=== PATIENT | male | born 1955 | race Caucasian/White ===

== ENCOUNTER 2017-07-31 23:37 | Emergency (ER) | payer OTHER ==
[2017-08-01 00:51] VITALS: BP 128/99; PULSE 82; TEMP 98.2; BMI 20.7
--- NOTE | 2017-08-01 00:59 | PDOC ---
History of Present Illness <Isaiah Lopes - Last Filed: 08/01/17 01:09> - General History Source: Patient Exam Limitations: No Limitations - History of Present Illness Initial Comments: 08/01/17 02:13 The patient is a 61 year old male with a significant PMH of diabetes who presents to the emergency department with increased glucose level. The patient reports that he was at home earlier today when he did his finger stick and took his insulin. He patient reports that he thinks he too too much of his insulin. The patient was brought into the ED via EMS. The patient denies any fever, chills, nausea, vomit, diarrhea, constipation or urinary symptoms. The patient denies chest pain, shortness of breath, headache and dizziness. The patient denies any other complaints. <Satish Rowe - Last Filed: 08/01/17 02:14> - General Chief Complaint: Blood Sugar Problem Stated Complaint: BLOOD SUGAR PROBLEM Time Seen by Provider: 08/01/17 00:46 Past History - Past Medical History Diabetes: Yes (IDDM) Thyroid Disease: Yes (HYPO) - Immunization History Immunization Up to Date: Yes - Suicide/Smoking/Psychosocial Hx Smoking Status: No Smoking History: Never smoked Have you smoked in the past 12 months: No Number of Cigarettes Smoked Daily: 0 Information on smoking cessation initiated: No Hx Alcohol Use: No Drug/Substance Use Hx: No Substance Use Type: None <MarianneIsaiah - Last Filed: 08/01/17 01:09> <Satish Rowe - Last Filed: 08/01/17 02:14> - Past Medical History Allergies/Adverse Reactions: Allergies Allergy/AdvReac Type Severity Reaction Status Date / Time No Known Allergies Allergy Verified 08/01/17 00:50 Home Medications: Ambulatory Orders Levothyroxine [Synthroid -] 100 mcg PO DAILY #0 tablet 06/04/11 Insulin Glargine,Hum.rec.anlog [Lantus] 35 unit SQ Q12H 12/20/15 Review of Systems - Review of Systems Able to Perform ROS?: Yes Comments:: 08/01/17 02:13 Constitutional:(+)high blood sugar. No recent illness; no fever ENT: No sore throat Cardiovascular: No palpitations; no chest pain Pulmonary: No cough; no trouble breathing Gastrointestinal: No nausea; no vomiting; no diarrhea Genitourinary: No urinary problems; no hematuria Skin: No rash Lymph system: No swollen glands Musculoskeletal: No joint swelling Neurological: No weakness; No numbness; No Headache; no vertigo; no lightheadedness Psychiatric:No anxiety; no depression ROS: A complete review of 10 out of 10 review of systems is taken and is negative apart from what is previously mentioned below and in the HPI. <Satish Rowe - Last Filed: 08/01/17 02:14> *Physical Exam - Vital Signs Last Vital Signs Temp Pulse Resp BP Pulse Ox 98.2 F 82 19 128/99 97 08/01/17 00:34 08/01/17 00:34 08/01/17 00:34 08/01/17 00:34 08/01/17 00:34 <Isaiah Lopes - Last Filed: 08/01/17 01:09> - Vital Signs Last Vital Signs Temp Pulse Resp BP Pulse Ox 98.2 F 82 19 128/99 97 08/01/17 00:34 08/01/17 00:34 08/01/17 00:34 08/01/17 00:34 08/01/17 00:34 - Physical Exam Comments: 08/01/17 02:13 Vitals: Triage vital signs reviewed General Appearance: No acute distress, well nourished, well developed Head: Atraumatic Chest Wall: Nontender Cardiac: Regular rate and rhythm, no murmurs, no rubs, no gallops Lungs: Clear to auscultation bilateral, good air movement bilaterally Abdomen: Soft, nondistended, normal bowel sounds, nontender to palpation Rectal: Exam deferred Extremities: Full range of motion to all extremities, no cyanosis, clubbing, or edema Skin: Warm and dry, no rashes or lesions, no rash, no petechiae Neuro: AOX3; Cranial Nerves 2-12 grossly intact, Strength intact to all extremities, Sensation intact to all extremities, gait normal Psych: Normal mood, normal affect <Satish Rowe - Last Filed: 08/01/17 02:14> ED Treatment Course - ADDITIONAL ORDERS Additional order review: Laboratory Results 08/01/17 00:34 POC Glucometer 89.05768 08/01/17 00:34 POC Glucometer 89.46340 <Isaiah Lopes - Last Filed: 08/01/17 01:09> - ADDITIONAL ORDERS Additional order review: Laboratory Results 08/01/17 00:34 POC Glucometer 89.87962 08/01/17 00:34 POC Glucometer 89.23936 <Satish Rowe - Last Filed: 08/01/17 02:14> Medical Decision Making - Medical Decision Making 08/01/17 00:59 Patient with frequent visits for hypoglycemia. States he had a high fingerstick at home supped too much of his insulin EMS found patient with a fingerstick of 24 was given 500 mL of D10 in the field Currently is fingerstick is 89. Patient provided with sandwich. Review of systems negative. His examination is within normal limits. Patient does not want blood work drawn. If repeat fingerstick within normal limits patient can return home patient advised to take his insulin only as prescribed and is advised follow-up with his primary care provider tomorrow <Isaiah Lopes - Last Filed: 08/01/17 01:09> - Medical Decision Making 08/01/17 02:13 The patient is a 61 year old male with a significant PMH of diabetes who presents to the emergency department with increased glucose level. The patient reports that he was at home earlier today when he did his finger stick and took his insulin. He patient reports that he thinks he too too much of his insulin. The patient was brought into the ED via EMS. The patient denies any fever, chills, nausea, vomit, diarrhea, constipation or urinary symptoms. The patient denies chest pain, shortness of breath, headache and dizziness. The patient denies any other complaints. <Satish Rowe - Last Filed: 08/01/17 02:14> *DC/Admit/Observation/Transfer - Discharge Dispostion Decision to Admit order: No <Isaiah Lopes - Last Filed: 08/01/17 01:09> - Attestations Scribe Attestion: 08/01/17 02:14 Documentation prepared by Satish Rowe, acting as medical claims representative for Isaiah Lopes MD. <Satish Rowe - Last Filed: 08/01/17 02:14> Diagnosis at time of Disposition: Low blood glucose measurement - Discharge Dispostion Disposition: HOME Condition at time of disposition: Fair - Referrals Referrals: Shivam Dasilva MD [Primary Care Provider] - - Patient Instructions Printed Discharge Instructions: Hypoglycemia Additional Instructions: Do not take any extra insulin tonight. Tomorrow morning call your primary care provider to discuss her current insulin regimen. Only take her insulin exactly as prescribed do not skip any meals. Return to emergency Department for severe worsening symptoms or for any concerns. - Post Discharge Activity
== END 2017-08-01 01:56 | disposition home or self-care (01) ==
LOC: JER 23:37
DX: E11.649 Type 2 diabetes mellitus with hypoglycemia without coma (principal); Z79.4 Long term (current) use of insulin; E03.9 Hypothyroidism, unspecified
CPT/HCPCS: 82962; 99281-25

== ENCOUNTER 2018-07-26 04:07 | Emergency (ER) | payer SELFPAY ==
[2018-07-26 04:46] VITALS: TEMP 98.1; BMI 21.9
--- NOTE | 2018-07-26 04:47 | PDOC ---
History of Present Illness - General Chief Complaint: Blood Sugar Problem Stated Complaint: Low blood sugar Time Seen by Provider: 07/26/18 04:46 History Source: Patient, Sibling Exam Limitations: No Limitations - History of Present Illness Initial Comments: 07/26/18 05:14 Patient is a 62 year old male with history of insulin dependent diabetes mellitus, hypothyroidism, presents with hypoglycemia. Per patient's brother (Angelo Duke [phone]) patient was found in bed, groaning approx 11PM. His fingerstick blood glucose was in the 20s, and remained at that level despite drinking juice which prompted him calling 911. Denies any fall, loss of consciousness, trauma to head or any other part of the body, seizure-like activity. Patient admits taking his usual dose Insulin 35 units this morning (approx 11AM). Patient denies taking any oral hypoglycemic medications. Patient admits that this morning, he ate toast with coffee, had [employer] (fillet of fish) for lunch, and had chicken for dinner, however admits that he was not hungry during the day and did not eat as much as he usually would. Patient denies subjective fevers, chills, shortness of breath, chest pain, palpitations, abdominal pain, nausea, vomiting. Of note, patient has been evaluated at [facility] ED for hypoglycemia numerous visits in the past. Past History - Past Medical History Allergies/Adverse Reactions: Allergies Allergy/AdvReac Type Severity Reaction Status Date / Time No Known Allergies Allergy Verified 07/26/18 04:37 Home Medications: Ambulatory Orders Levothyroxine [Synthroid -] 100 mcg PO DAILY #0 tablet 06/04/11 Insulin Glargine,Hum.rec.anlog [Lantus] 35 unit SQ Q12H 12/20/15 Diabetes: Yes (IDDM) Thyroid Disease: Yes (HYPO) - Immunization History Immunization Up to Date: Yes - Suicide/Smoking/Psychosocial Hx Smoking Status: No Smoking History: Never smoked Have you smoked in the past 12 months: No Number of Cigarettes Smoked Daily: 0 Information on smoking cessation initiated: No Hx Alcohol Use: Yes (social) Drug/Substance Use Hx: No Substance Use Type: None Review of Systems - Review of Systems Able to Perform ROS?: Yes (As per HPI) *Physical Exam - Vital Signs Last Vital Signs Temp Pulse Resp BP Pulse Ox 98.1 F 82 18 141/94 100 07/26/18 04:07 07/26/18 04:07 07/26/18 04:07 07/26/18 04:07 07/26/18 04:07 - Physical Exam General Appearance: Yes: Nourished. No: Apparent Distress HEENT: positive: EOMI, HITESH. negative: Scleral Icterus (R), Scleral Icterus (L) , Pharyngeal Erythema, Nasal Congestion Neck: positive: Trachea midline, Supple. negative: Lymphadenopathy (R), Lymphadenopathy (L) Respiratory/Chest: positive: Lungs Clear, Normal Breath Sounds. negative: Respiratory Distress, Accessory Muscle Use, Crackles, Rales, Rhonchi, Stridor, Wheezing, Hyperresonant Cardiovascular: positive: Regular Rhythm, Regular Rate, S1, S2. negative: Murmur Gastrointestinal/Abdominal: positive: Normal Bowel Sounds, Flat, Soft. negative : Tender Extremity: positive: Normal Capillary Refill, Normal Range of Motion Integumentary: positive: Dry, Warm Neurologic: positive: bias cutter helper II-XII NML intact, Fully Oriented, Alert, Normal Mood/ Affect, Motor Strength 07/01 ED Treatment Course - LABORATORY CBC & Chemistry Diagram: 07/26/18 05:20 07/26/18 05:20 Medical Decision Making - Medical Decision Making 07/26/18 05:21 Patient is a 62 year old male with history of insulin dependent diabetes mellitus, hypothyroidism, presents with hypoglycemia. BGM in the field was reportedly in the 20s. Currently in ED BGN is 251 mg/ dL after eating cookies, and juice. Will order CBC, BMP. 07/26/18 06:07 CBC unremarkable. HB, HCT stable. BMP reveals blood glucose of 253 Patient resting comfortably in exam bed, denies acute complaints. Will discharge patient home. Counselled patient to discuss his insulin doseage with primary care physician. Referral provided for bilingual interpreter. Counseled patient to eat frequent meals, and to not skip any meals. Counselled to continue checking fingerstick blood glucose and to drink water and return to ED if BGM below 60. Patient in agreement with plan. All concerns, questions addressed and answered. Family picked up patient to take him home. 07/26/18 06:44 *DC/Admit/Observation/Transfer Diagnosis at time of Disposition: Hypoglycemia - Discharge Dispostion Disposition: HOME Condition at time of disposition: Stable Decision to Admit order: No - Referrals Referrals: Liss Pandey MD [Staff Physician] - - Patient Instructions Printed Discharge Instructions: DI for Hypoglycemia Additional Instructions: You were seen in the Emergency Department for low blood sugar. Your blood sugar increased with food, and juice and has remained stable. You are being discharged home. Continue taking your home medications as directed. Discuss your insulin dose with your primary care physician. Follow your primary care physician's recommendations closely Further, ensure to eat 5 meals throughout the day with a diet rich in whole grains, protein, and vegetables. DO NOT skip any meals. Continue checking your blood sugars. If your blood sugar is below 60mg/dL immediately drink some juice and return to the nearest Emergency Department. Follow up with your primary care physician TODAY, regarding your insulin dose. It is important that you follow up with an bilingual interpreter. A referral to Dr. Pandey has been provided. Return to the nearest Emergency Department if you experience worsening symptoms , subjective fevers, chills, shortness of breath, chest pain, palpitations, abdominal pain, nausea, vomiting, falls, loss of consciousness, any trauma. - Post Discharge Activity
[2018-07-26 05:45] LABS: HEMOGLOBIN 14.9 GM/dL (11.7-16.9); MCH 33.6 pg (25.7-33.7); MCHC 34.7 g/dl (32.0-35.9); MEAN CELL VOLUME 96.9 fl (80-96); MEAN PLT VOLUME 8.1 fl (7.5-11.1); PLATELET COUNT 261 K/MM3 (134-434); RBC 4.44 M/mm3 (4.00-5.60); RDW 12.6 % (11.9-15.9); WHITE BLOOD COUNT 9.1 K/mm3 (4.0-10.0)
[2018-07-26 05:54] LABS: CALCIUM 8.9 mg/dL (8.5-10.1); CREATININE 0.8 mg/dL (0.55-1.3); POTASSIUM 4.5 mmol/L (3.5-5.1)
--- NOTE | 2018-07-26 06:21 | PDOC ---
Attending Attestation - Resident Resident Name: Eduar Javier - ED Attending Attestation I have performed the following: I have examined & evaluated the patient, The case was reviewed & discussed with the resident, I agree w/resident's findings & plan - HPI HPI: 07/26/18 06:17 62-year-old male found to be breathing heavy by family with blood sugars in the 20s according to EMS. Patient given D10 prior to arrival. - Physicial Exam PE: 07/26/18 06:19 agree with residents exam - Medical Decision Making 07/26/18 06:19 62-year-old male with hypoglycemia currently on insulin only for diabetes Patient's blood sugar now 253 after eating in the emergency department He is awake alert and asking to be discharged home on reevaluation at 6:15 Patient advised to follow him health record technician as he has had hypoglycemia in the past and states he only takes his insulin once a day
[2018-07-26 07:42] VITALS: BP 135/90; PULSE 80
--- NOTE | 2018-07-30 11:30 | EKG ---
Test Reason : Blood Pressure : / mmHG Vent. Rate : 086 BPM Atrial Rate : 086 BPM P-R Int : 128 ms QRS Dur : 082 ms QT Int : 364 ms P-R-T Axes : 085 026 055 degrees QTc Int : 435 ms NORMAL SINUS RHYTHM NORMAL ECG WHEN COMPARED WITH ECG OF 20-DEC-2015 20:28, NO SIGNIFICANT CHANGE WAS FOUND Confirmed by ENOC MENESES MD ([id number]) on 07/30/2018 11:29:53 AM Referred By: Confirmed By:ENOC MENESES MD
== END 2018-07-26 06:47 | disposition home or self-care (01) ==
LOC: JER 04:07
DX: E11.649 Type 2 diabetes mellitus with hypoglycemia without coma (principal); Z79.4 Long term (current) use of insulin; E03.9 Hypothyroidism, unspecified
CPT/HCPCS: 36415; 80048; 82962; 85027; 93005; 93010; 99282-25

== ENCOUNTER 2018-08-22 02:00 | Emergency (ER) | payer OTHER | END 2018-08-22 04:33 | disposition home or self-care (01) | LOC: JER 02:00 ==

== ENCOUNTER 2018-12-07 03:20 | Emergency (ER) | payer OTHER ==
[2018-12-07 03:44] VITALS: BP 144/96; PULSE 76; TEMP 97.8; BMI 23.5
--- NOTE | 2018-12-07 04:09 | PDOC ---
History of Present Illness - General Chief Complaint: Blood Sugar Problem Stated Complaint: BLOOD SUGAR PROBLEM Time Seen by Provider: 12/07/18 04:08 History Source: Patient Exam Limitations: No Limitations - History of Present Illness Initial Comments: 12/07/18 04:17 Todd Duke is a 63yM w PMHX IDDM, hypothyroidism presenting with hypoglycemia. This morning, pt was sleeping when sister measured BG 26. Denies any change in sensation. Started D10 by EMS on the way to [facility]. Takes 30u Lantus once every morning. Denies change in activity/eating. Denies fever, cough , headache, SOB, chest/AB pain, urinary/bowel movement changes. Past History - Past Medical History Allergies/Adverse Reactions: Allergies Allergy/AdvReac Type Severity Reaction Status Date / Time No Known Allergies Allergy Verified 12/07/18 03:42 Home Medications: Ambulatory Orders Levothyroxine [Synthroid -] 100 mcg PO DAILY #0 tablet 06/04/11 Insulin Glargine,Hum.rec.anlog [Lantus] 30 unit SQ HS 12/20/15 COPD: No Diabetes: Yes (IDDM) Thyroid Disease: Yes (HYPO) - Immunization History Immunization Up to Date: Yes - Psycho Social/Smoking Cessation Hx Smoking Status: No Smoking History: Unknown if ever smoked Have you smoked in the past 12 months: No Number of Cigarettes Smoked Daily: 0 Information on smoking cessation initiated: No Hx Alcohol Use: No Drug/Substance Use Hx: No Substance Use Type: None Review of Systems - Review of Systems Constitutional: No: Chills HEENTM: No: Eye Pain, Nose Pain, Throat Pain, Mouth Pain Respiratory: No: Cough, Shortness of Breath Cardiac (ROS): No: Chest Pain, Palpitations, Syncope ABD/GI: No: Abdominal Distended, Constipated, Diarrhea, Nausea, Vomiting : No: Burning, Dysuria, Discharge, Flank Pain, Hematuria Musculoskeletal: No: Back Pain, Joint Pain, Muscle Pain, Muscle Weakness Integumentary: No: Bruising, Flushing, Lesions Neurological: No: Headache, Seizure, Tingling, Tremors Psychiatric: No: Anxiety, Depression, Stressors Endocrine: No: Excessive Sweating, Flushing, Intolerance to Cold, Intolerance to Heat Hematologic/Lymphatic: No: Anemia, Blood Clots *Physical Exam - Vital Signs Last Vital Signs Temp Pulse Resp BP Pulse Ox 97.8 F 76 20 144/96 98 12/07/18 03:42 12/07/18 03:42 12/07/18 03:42 12/07/18 03:42 12/07/18 03:42 - Physical Exam General Appearance: Yes: Nourished, Appropriately Dressed. No: Apparent Distress HEENT: positive: EOMI, HITESH, Normal Voice, Hearing Grossly Normal. negative: Scleral Icterus (R), Scleral Icterus (L), Nasal Congestion, Rhinorrhea Respiratory/Chest: positive: Lungs Clear, Normal Breath Sounds. negative: Chest Tender, Respiratory Distress, Crackles, Rhonchi, Stridor, Wheezing Cardiovascular: positive: Regular Rhythm, Regular Rate, S1, S2. negative: Edema , Murmur Gastrointestinal/Abdominal: positive: Normal Bowel Sounds, Flat, Soft. negative : Tender, Organomegaly Musculoskeletal: negative: CVA Tenderness (R), CVA Tenderness (L) Extremity: positive: Normal Capillary Refill Integumentary: positive: Normal Color Neurologic: positive: Fully Oriented, Alert, Normal Response, Responsive. negative: Sensory Deficit, Confused, Disoriented ED Treatment Course - ADDITIONAL ORDERS Additional order review: Laboratory Results 12/07/18 03:38 POC Glucometer 71 12/07/18 03:38 POC Glucometer 71 Medical Decision Making - Medical Decision Making 12/07/18 04:25 Todd Duke is a 63yM w PMHX IDDM, hypothyroidism presenting with hypoglycemia BG 26 likely d/t inadequate food intake. Repeat BG 71 after D10 given. Pt neuro intact, back to baseline, asymptomatic. Pending UA. D/c home w PCP f/u, call back if UA abnormal Discharge - Discharge Information Problems reviewed: Yes Clinical Impression/Diagnosis: Hypoglycemia Condition: Improved Disposition: HOME - Follow up/Referral Referrals: Ирина Escalera MD [Primary Care Provider] - CallBack Reminder: call back if UA abnormal - Patient Discharge Instructions Patient Printed Discharge Instructions: DI for Hypoglycemia Additional Instructions: You were seen for low glucose levels. You were given glucose. We'll call you back if the urine sample is abnormal Please follow up with your primary care doctor to control your glucose Come back to the ED if your glucose is low, pass out, or vomit - Post Discharge Activity
--- NOTE | 2018-12-07 05:40 | PDOC ---
Attending Attestation - Resident Resident Name: AntonioAddy - ED Attending Attestation I have performed the following: I have examined & evaluated the patient, The case was reviewed & discussed with the resident, I agree w/resident's findings & plan, Exceptions are as noted - HPI HPI: 12/07/18 05:33 Mr. Duke is a 63 yo M h/o IDDM, hypothyroidism presenting with hypoglycemia. Pt bloog glucose was measured by a family member, noted to be 26 EMS called, started on D10 Pt took 30 units of Lantus daily Did not eat much today Denies fever, cough, headache, SOB, chest/AB pain, urinary/bowel movement changes. - Physicial Exam PE: 12/07/18 05:35 GENERAL: The patient is in no acute distress, he is pacing in the ER. ENT:Moist mucous membranes. NECK: Normal range of motion, supple, no nuchal rigidity LUNGS: Breath sounds equal, clear to auscultation bilaterally. No wheezes, and no crackles. HEART:Regular rate and rhythm, normal S1 and S2 without murmur, rub or gallop. ABDOMEN: Soft, nontender, normoactive bowel sounds. EXTREMITIES: Normal range of motion, no edema. NEUROLOGICAL: Cranial nerves II through XII grossly intact. Normal speech. No focal neurological deficits. SKIN: Warm, Dry, normal turgor, no rashes or lesions noted. - Medical Decision Making 12/07/18 05:36 Laboratory Tests 12/07/18 03:38 POC Glucometer 71 Pt is fidgiting, pacing in the ER Requesting to leave the ER now No other complaints We have had a discussion about close monitoring of his blood glucose And that he should eat or drink if his blood glucose gets low Clinical impression: Hypoglycemia
== END 2018-12-07 05:34 | disposition home or self-care (01) ==
LOC: JER 03:20
DX: E11.649 Type 2 diabetes mellitus with hypoglycemia without coma (principal); Z79.4 Long term (current) use of insulin; E03.9 Hypothyroidism, unspecified
CPT/HCPCS: 82962; 99282-25

== ENCOUNTER 2018-12-16 07:18 | Emergency (ER) | payer OTHER ==
--- NOTE | 2018-12-16 07:21 | PDOC ---
History of Present Illness - General Stated Complaint: HYPOGLACEMIA - History of Present Illness Initial Comments: The pt is a 63M w/ a history of IDDM and hypothyroidism who presents for evaluation of an episode of hypoglycemia. The pt lives with his family who noted he was altered this morning and called EMS. Upon arrival, per EMS, the pt' s BG was 25. He got 250cc of D10 in the field w/ a repeat BG of 120s. The pt reports he last took NPH 40u at 1000 yesterday (21 hours ago) and denies any regular insulin use in the last 3 days or any insulin use at all after 1000 yesterday. He endorses taking his Synthroid this AM. He denies fevers, MULLER, chest pain, cough, trouble breathing, N/V/C/D, dysuria, or rash Meds: NPH 40u Qam, Regular insulin ISS, Synthroid 12/16/18 07:32 Past History - Past Medical History Allergies/Adverse Reactions: Allergies Allergy/AdvReac Type Severity Reaction Status Date / Time No Known Allergies Allergy Verified 12/16/18 07:22 Home Medications: Ambulatory Orders Levothyroxine [Synthroid -] 100 mcg PO DAILY #0 tablet 06/04/11 Insulin Glargine,Hum.rec.anlog [Lantus] 30 unit SQ HS 12/20/15 COPD: No Diabetes: Yes (IDDM) Thyroid Disease: Yes (HYPO) - Immunization History Immunization Up to Date: Yes - Psycho Social/Smoking Cessation Hx Smoking Status: No Smoking History: Unknown if ever smoked Have you smoked in the past 12 months: No Number of Cigarettes Smoked Daily: 0 Hx Alcohol Use: No Drug/Substance Use Hx: No Substance Use Type: None Review of Systems - Review of Systems Able to Perform ROS?: Yes Comments:: GENERAL/CONSTITUTIONAL: No fever or chills. No weakness HEAD, EYES, EARS, NOSE AND THROAT: No change in vision. No change in hearing. No sore throat CARDIOVASCULAR: No chest pain or shortness of breath RESPIRATORY: Denies cough, hemoptysis GASTROINTESTINAL: No nausea, vomiting, diarrhea or constipation GENITOURINARY: No dysuria, frequency, or change in urination MUSCULOSKELETAL: No joint or muscle swelling or pain. No neck or back pain SKIN: No rash NEUROLOGIC: No headache, vertigo, loss of consciousness, or change in strength/ sensation ENDOCRINE: No increased thirst. No abnormal weight change ALLERGIC/IMMUNOLOGIC: No hives or skin allergy 12/16/18 07:20 Is the patient limited Spanish proficient: No *Physical Exam - Vital Signs Vital Signs Period Temp Pulse Resp BP Sys/Lackey Pulse Ox Last 24 Hr 98.8 F 70 16 145/77 100 12/16/18 07:37 - Physical Exam Comments: GENERAL: Awake, alert, and oriented to person/place/time, in no acute distress HEAD: No signs of trauma, normocephalic, atraumatic EYES: PERRLA, EOMI, sclera anicteric, conjunctiva clear ENT: Hearing grossly normal, nares patent, oropharynx clear without exudates. Moist mucosa LUNGS: No distress, speaks in full sentences, clear to auscultation bilaterally HEART: Regular rate and rhythm, normal S1 and S2, no murmurs appreciated, peripheral pulses normal and equal bilaterally ABDOMEN: Soft, nontender, normoactive bowel sounds. No guarding, no rebound EXTREMITIES: Normal inspection, Normal range of motion, no edema. No clubbing or cyanosis NEUROLOGICAL: Cranial nerves II through XII grossly intact. Normal speech, normal gait, no focal sensorimotor deficits SKIN: Warm, Dry 12/16/18 07:20 Medical Decision Making - Medical Decision Making The pt is a 63M w/ a history of IDDM and hypothyroidism who presents for evaluation of an episode of hypoglycemia. ED Course BGM 193 Pt A&Ox3 at this time and eating Will recheck BG and monitor 12/16/18 07:41 Repeat BGM 228 12/16/18 08:17 Pt need follow up with Dr. Dasilva this week to discuss insulin regimen discussed with him. Plan for D/C Discharge instructions and return precautions given Patient in agreement and verbalized understanding Dispo: Home Discharge - Discharge Information Problems reviewed: Yes Clinical Impression/Diagnosis: Hypoglycemia Condition: Stable Disposition: HOME - Admission No - Follow up/Referral Referrals: Shivam Dasilva MD [Primary Care Provider] - - Patient Discharge Instructions Patient Printed Discharge Instructions: DI for Hypoglycemia Additional Instructions: You were seen in the Emergency Department for evaluation of low blood sugar. Repeat checks in the Emergency Department were improved. Call Dr. Dasilva's office tomorrow to schedule and appointment to discuss your insulin regimen. It may need to be adjusted if you are having episodes of low blood sugar. Review the handout provided at discharge. Return to the Emergency Department if you develop confusion, dizziness, chest pain, trouble breathing, nausea/vomiting, abdominal pain, worsening symptoms, or any new/concerning symptoms. - Post Discharge Activity
--- NOTE | 2018-12-16 07:25 | PDOC ---
Attending Attestation - Resident Resident Name: Deshawn Acosta - HPI HPI: 12/16/18 08:19 Pt presents to the ED after found hypoglycemic at home. Last insulin was novalog at 11 am yesterday, as per patient. Patient is unable to state why his blood sugar keeps dropping. States that he ate his normal diet yesterday. Now denies complaints. - Physicial Exam PE: 12/16/18 08:21 Agree with resident exam. Patient is alert and oriented x 3. CN grossly intact. Moving all extremities. - Medical Decision Making 12/16/18 08:21 Pt presents to the ED complaining of hypoglycemia. Resolved after d10 by EMS. Has eaten in the ED, FS 220 after 1 hour. Will discharge home with instructions to call Dr. Gant for follow up tomorrrow AM.
[2018-12-16 07:41] VITALS: BP 145/77; BMI 21.9
[2018-12-16 08:26] VITALS: PULSE 82; TEMP 98.2
== END 2018-12-16 08:25 | disposition home or self-care (01) ==
LOC: JER 07:18
DX: E11.649 Type 2 diabetes mellitus with hypoglycemia without coma (principal); Z79.4 Long term (current) use of insulin; E03.9 Hypothyroidism, unspecified
CPT/HCPCS: 82962; 99282-25

== ENCOUNTER 2019-02-06 04:15 | Emergency (ER) | payer OTHER ==
[2019-02-06] MEDS ORDERED: GlUCAGON HUMAN RECOMBINANT 1 MG/VIAL ONE (04:18)
[2019-02-06 04:29] VITALS: TEMP 98.3; BMI 21.9
--- NOTE | 2019-02-06 05:03 | PDOC ---
Attending Attestation - Resident Resident Name: Juan Carlos Chakraborty - ED Attending Attestation I have performed the following: I have examined & evaluated the patient, The case was reviewed & discussed with the resident, I agree w/resident's findings & plan - HPI HPI: 02/06/19 05:58 SEE RESIDENT HPI - Physicial Exam PE: 02/06/19 05:59 agree with resident exam - Medical Decision Making 02/06/19 05:59 63-year-old male found unresponsive with a blood sugar of 25 Likely insulin reaction, patient is not on oral sulfonylureas Labs were unremarkable for significant acute abnormalities Patient received D10 and glucagon prior to arrival Patient fed in the emergency department He has ambulated to the bathroom on his own and is alert and oriented at baseline Will DC home with instructions for insulin reaction and PCP follow-up
[2019-02-06 05:12] LABS: BASO % 0.1 % (0-2.0); HEMOGLOBIN 15.1 GM/dL (11.7-16.9); LYMPH % 5.6 % (8-40); MCH 34.9 pg (25.7-33.7); MCHC 35.2 g/dl (32.0-35.9); MEAN CELL VOLUME 99.1 fl (80-96); MEAN PLT VOLUME 8.1 fl (7.5-11.1); MONO % 5.9 % (3.8-10.2); NEUT % 88.4 % (42.8-82.8); PLATELET COUNT 284 K/MM3 (134-434); RBC 4.33 M/mm3 (4.00-5.60); RDW 12.8 % (11.9-15.9); WHITE BLOOD COUNT 14.7 K/mm3 (4.0-10.0)
[2019-02-06 05:34] LABS: ALBUMIN 3.9 g/dl (3.4-5.0); BILIRUBIN,TOTAL 0.4 mg/dL (0.2-1); BLOOD UREA NITROGEN 9.7 mg/dL (7-18); CALCIUM 9.1 mg/dL (8.5-10.1); CREATININE 0.9 mg/dL (0.55-1.3); POTASSIUM 3.8 mmol/L (3.5-5.1); TOT PROT 6.9 g/dl (6.4-8.2)
--- NOTE | 2019-02-06 06:06 | PDOC ---
History of Present Illness - General Chief Complaint: Blood Sugar Problem Stated Complaint: HYPOGLYCEMIA Time Seen by Provider: 02/06/19 05:02 Past History - Past Medical History Allergies/Adverse Reactions: Allergies Allergy/AdvReac Type Severity Reaction Status Date / Time No Known Allergies Allergy Verified 02/06/19 04:19 Home Medications: Ambulatory Orders Levothyroxine [Synthroid -] 100 mcg PO DAILY #0 tablet 06/04/11 Insulin Glargine,Hum.rec.anlog [Lantus] 30 unit SQ HS 12/20/15 COPD: No Diabetes: Yes (IDDM) Thyroid Disease: Yes (HYPO) - Immunization History Immunization Up to Date: Yes - Psycho Social/Smoking Cessation Hx Smoking Status: No Smoking History: Unknown if ever smoked Have you smoked in the past 12 months: No Number of Cigarettes Smoked Daily: 0 Hx Alcohol Use: No Drug/Substance Use Hx: No Substance Use Type: None *Physical Exam - Vital Signs Last Vital Signs Temp Pulse Resp BP Pulse Ox 98.3 F 80 16 140/82 100 02/06/19 04:19 02/06/19 04:19 02/06/19 04:19 02/06/19 04:19 02/06/19 04:19 ED Treatment Course - LABORATORY CBC & Chemistry Diagram: 02/06/19 04:55 02/06/19 04:55 - ADDITIONAL ORDERS Additional order review: Laboratory Results 02/06/19 02/06/19 04:59 04:55 Sodium 142 Potassium 3.8 Chloride 107 Carbon Dioxide 27 Anion Gap 8 BUN 9.7 Creatinine 0.9 Est GFR (CKD-EPI)AfAm 104.24 Est GFR (CKD-EPI)NonAf 89.94 POC Glucometer 240 Random Glucose 157 H Calcium 9.1 Total Bilirubin 0.4 AST 21 ALT 21 Alkaline Phosphatase 81 Total Protein 6.9 Albumin 3.9 02/06/19 02/06/19 04:59 04:55 RBC 4.33 MCV 99.1 H MCHC 35.2 RDW 12.8 MPV 8.1 Neutrophils % 88.4 H D Lymphocytes % 5.6 L D Monocytes % 5.9 Eosinophils % 0.0 D Basophils % 0.1 POC Glucometer 240 Discharge - Discharge Information Problems reviewed: Yes Clinical Impression/Diagnosis: Low blood glucose measurement, Hypoglycemia Disposition: HOME - Admission No - Follow up/Referral Referrals: Shivam Dasilva MD [Primary Care Provider] - - Patient Discharge Instructions Patient Printed Discharge Instructions: DI for Hyperglycemia -- Adult Additional Instructions: Please see your Primary doctor as soon as possible. Make sure to take your insulin as prescribed. Return to the ER for new or concerning symptoms including but not limited to: loss of consciousness, weakness, low blood sugar. Thank you - Post Discharge Activity
[2019-02-06 06:19] VITALS: BP 112/83; PULSE 79
== END 2019-02-06 06:24 | disposition home or self-care (01) ==
LOC: JER 04:15
DX: E11.649 Type 2 diabetes mellitus with hypoglycemia without coma (principal)
CPT/HCPCS: 36415; 80053; 82962; 85025; 99283-25

== ENCOUNTER 2019-03-23 07:57 | Emergency (ER) | payer OTHER ==
--- NOTE | 2019-03-23 08:02 | PDOC ---
History of Present Illness - General Stated Complaint: HYPOGLYCEMIA Time Seen by Provider: 03/23/19 08:00 - History of Present Illness Initial Comments: 03/23/19 08:01 HPI: 63 y/o M with IDDM and hypothyroidism BIBEMS for found unresponsive by family, found to have glucose 35 by EMS. Received glucagon enroute and sugar water in ED. Patient arrived in ED alert and oriented. Denying any pain and no complaints. No MULLER, LH, chest pain, SOB, abd pain, n/v, sore throat, cough. States DM is hell on earth and repeatedly talks about [place]; denies any auditory or visual hallucinations, no SI/HI. PMHx: as noted above ROS: as noted SHx: Denies tobacco use; no alcohol use; no rec drugs Allergies: NKDA ROS: GENERAL/CONSTITUTIONAL: No fever or chills. No weakness. HEAD, EYES, EARS, NOSE AND THROAT: No change in vision. No ear pain or discharge. No sore throat. CARDIOVASCULAR: No chest pain or shortness of breath RESPIRATORY: No cough, wheezing, or hemoptysis. GASTROINTESTINAL: No nausea, vomiting, diarrhea or constipation. GENITOURINARY: No dysuria, frequency, or change in urination. MUSCULOSKELETAL: No joint or muscle swelling or pain. No neck or back pain. SKIN: No rash NEUROLOGIC: No headache, vertigo, loss of consciousness, or change in strength/ sensation. ENDOCRINE: No increased thirst. No abnormal weight change HEMATOLOGIC/LYMPHATIC: No anemia, easy bleeding, or history of blood clots. ALLERGIC/IMMUNOLOGIC: No hives or skin allergy. PE: GENERAL: Awake, alert, and fully oriented, no acute distress HEAD: No signs of trauma, normocephalic, atraumatic EYES: EOMI, sclera anicteric, conjunctiva clear ENT: Auricles normal inspection, hearing grossly normal, nares patent, oropharynx clear without exudates. Moist mucosa NECK: Normal ROM, no lymphadenopathy LUNGS: No increased work of breathing, symmetrical chest rise, clear to auscultation bilaterally, no wheezes, crackles or rhonchi HEART: Regular rate, regular rhythm, normal S1 and S2, no murmur, peripheral pulses 2+ and equal bilaterally. ABDOMEN: Soft, nondistended, nontender, normoactive bowel sounds. No guarding, no rebound. No masses. No CVAT MUSCULOSKELETAL: Normal inspection, FROM NEUROLOGICAL: Cranial nerves II through XII grossly intact. Normal speech, normal gait, no focal sensorimotor deficits SKIN: Warm, Dry, normal turgor, no rashes or lesions noted Past History - Past Medical History Allergies/Adverse Reactions: Allergies Allergy/AdvReac Type Severity Reaction Status Date / Time No Known Allergies Allergy Verified 03/23/19 08:16 Home Medications: Ambulatory Orders Insulin NPH Human Isophane [Novolin N] 40 unit SQ DAILY 02/06/19 Levothyroxine [Synthroid -] 175 mcg PO DAILY 02/06/19 COPD: No Diabetes: Yes (IDDM) Thyroid Disease: Yes (HYPO) - Immunization History Immunization Up to Date: Yes - Psycho Social/Smoking Cessation Hx Smoking Status: No Smoking History: Unknown if ever smoked Have you smoked in the past 12 months: No Number of Cigarettes Smoked Daily: 0 Hx Alcohol Use: No Drug/Substance Use Hx: No Substance Use Type: None ED Treatment Course - LABORATORY CBC & Chemistry Diagram: 03/23/19 08:29 03/23/19 08:29 Medical Decision Making - Medical Decision Making 03/23/19 10:16 63 y/o M with IDDM and hypothyroidism BIBEMS for found unresponsive by family, found to have glucose 35 by EMS, now a&ox3. VSS, AF. PE unremarkable. -cbc, cmp, ekg, cxr, ct head 03/23/19 10:17 rpt gluc 142 labs wnl patient stating he wants to leave vitals stable patient ambulating without assist; on further history reporting he usually doesnt eat much food discussed with patient concerns; he understands all information and is consentable contacted brother and will picker and sorter load and unload patient Will DC home with pcp followup Discharge - Discharge Information Problems reviewed: Yes Clinical Impression/Diagnosis: Hypoglycemia Condition: Improved Disposition: HOME - Follow up/Referral - Patient Discharge Instructions Patient Printed Discharge Instructions: DI for Hypoglycemia Additional Instructions: Additional Instructions: Please return to the emergency department with any new or worsening symptoms or concerns including seizures, fainting, significant vomiting. Please follow up with your primary care physician within 72 hours for re- evaluation and medication check Please ensure adequate nutrition and medication compliance to prevent additional hypoglycemic events - Post Discharge Activity
[2019-03-23 08:29] VITALS: TEMP 97.8; BMI 21.9
--- NOTE | 2019-03-23 08:51 | PDOC ---
Attending Attestation - Resident Resident Name: Keshia Becerra - ED Attending Attestation I have performed the following: I have examined & evaluated the patient, The case was reviewed & discussed with the resident, I agree w/resident's findings & plan, Exceptions are as noted
[2019-03-23 08:56] LABS: BASO % 0.1 % (0-2.0); EOS % 0.1 % (0-4.5); HEMATOCRIT 46.6 % (35.4-49); HEMOGLOBIN 16.2 GM/dL (11.7-16.9); MCH 35.1 pg (25.7-33.7); MCHC 34.8 g/dl (32.0-35.9); MEAN CELL VOLUME 100.7 fl (80-96); MEAN PLT VOLUME 8.2 fl (7.5-11.1); MONO % 8.8 % (3.8-10.2); PLATELET COUNT 281 K/MM3 (134-434); RBC 4.62 M/mm3 (4.00-5.60); RDW 12.5 % (11.9-15.9); WHITE BLOOD COUNT 8.9 K/mm3 (4.0-10.0)
[2019-03-23 09:09] LABS: ALBUMIN 4.6 g/dl (3.4-5.0); BILIRUBIN,TOTAL 0.4 mg/dL (0.2-1); BLOOD UREA NITROGEN 9.9 mg/dL (7-18); CALCIUM 10.1 mg/dL (8.5-10.1); CREATININE 0.8 mg/dL (0.55-1.3); MAGNESIUM 2.5 mg/dL (1.8-2.4); TOT PROT 8.2 g/dl (6.4-8.2)
--- NOTE | 2019-03-23 10:03 | PDOC ---
Documentation entered by Keon Castorena SCRIBE, acting as scribe for Dunia Conner DO. Dunia Conner DO: This documentation has been prepared by the Raffaele joshi Nirvannie, SCRIBE, under my direction and personally reviewed by me in its entirety. I confirm that the documentation accurately reflects all work, treatment, procedures, and medical decision making performed by me. Attending Attestation - Resident Resident Name: Keshia Becerra - ED Attending Attestation I have performed the following: I have examined & evaluated the patient, The case was reviewed & discussed with the resident, I agree w/resident's findings & plan, Exceptions are as noted - HPI HPI: 03/23/19 09:55 The patient is a 63 year old male, with a significant past medical history of IDDM and hypothyroidism, who presents to the emergency department with hypoglycemia. As per EMS, patients sister called EMS when she could not arise him from his slumber. Per EMS, patient glucose was 30s in the field thus he was given Glucagon. Upon his arrival, patients glucose was 60s. While in the ED, patient notes to feel at his baseline. He endorses eating a meal last night before bed. He normally administers insulin himself (last dosage yesterday). He denies any fevers, chills, headache or dizziness. He denies any recent nausea , vomiting, diarrhea or constipation. He denies any recent chest pain or shortness of breath. He denies any recent dysuria, frequency, urgency or hematuria. Allergies: NKA Primary Care Physician: Dr. Slim Dasilva - Physicial Exam PE: 03/23/19 09:55 Constitutional: Awake, alert, oriented. No acute distress. Head: Normocephalic. Atraumatic Eyes: PERRL. EOMI. Conjunctivae are not pale. ENT: Mucous membranes are moist and intact. Posterior pharynx without exudates or erythema. Uvula midline. Neck: Supple. Full ROM. No lymphadenopathy. Cardiovascular: Regular rate. Regular rhythm. S1, S2 regular. Distal pulses are 2+ and symmetric. Pulmonary/Chest: No evidence of respiratory distress. Clear to auscultation bilaterally No wheezing, rales or rhonchi. Abdominal: Soft and non-distended. There is no tenderness. No rebound, guarding or rigidity. No organomegaly. No palpable masses. Good bowel sounds. Back: No CVA tenderness. Musculoskeletal: No edema. No cyanosis. No clubbing. Full range of motion in all extremities. No calf tenderness. Radial/pedal pulses are intact and 2+ bilaterally Skin: Skin is warm and dry. No petechiae. No purpura. Neurological: Alert and oriented to person, place, and time. Cranial nerves II -XII are grossly intact. Normal speech. Strength is grossly symmetric. No sensory deficits. Psychiatric: Good eye contact. Normal interaction, affect and behavior. - Medical Decision Making 03/23/19 09:59 a/p: 63yo male with hx of DM with low glu this AM and ams -pt given glucagon dining room captain and glu >100 upon arrival\ -pt awake, alert, oriented -pt ambulating in the ER with a steady gait -pt states he ate dinner last night and used his regular dose of insulin -pt denies n/v/d, denies dysuria, no cp/sob -pt states he wants to go home -head ct without acute findings -labs reviewed -will repeat glu -pt has eaten juice and crackers -call placed to justin - pts brother who will come pick him up 03/23/19 10:04 repeat glu 143 Heart Score/ECG Review - ECG Intrepretation Comment:: 03/23/19 10:02 sinus at 68, nl axis, nl interval, no acute st/t wave findings
[2019-03-23 10:08] VITALS: BP 123/85; PULSE 75
[2019-03-23 10:32] LABS: URINE APPEARANCE CLEAR; URINE BILIRUBIN NEGATIVE (NEGATIVE); URINE COLOR YELLOW; URINE GLUCOSE (UA) NEGATIVE (NEGATIVE); URINE KETONE 1+ (NEGATIVE); URINE LEUK ESTERASE NEGATIVE (NEGATIVE); URINE NITRITE NEGATIVE (NEGATIVE); URINE PROTEIN NEGATIVE (NEGATIVE); URINE UROBILINOGEN 0.2 mg/dL (0.2-1.0)
--- NOTE | 2019-03-24 12:38 | EKG ---
Test Reason : Blood Pressure : / mmHG Vent. Rate : 068 BPM Atrial Rate : 068 BPM P-R Int : 138 ms QRS Dur : 076 ms QT Int : 400 ms P-R-T Axes : 079 013 046 degrees QTc Int : 425 ms NORMAL SINUS RHYTHM POSSIBLE LEFT ATRIAL ENLARGEMENT WHEN COMPARED WITH ECG OF 26-JUL-2018 04:03, NO SIGNIFICANT CHANGE WAS FOUND Confirmed by LUCHO HOLLINGSWORTH MD ([id number]) on 03/24/2019 12:37:52 PM Referred By: Confirmed By:LUCHO HOLLINGSWORTH MD
== END 2019-03-23 10:33 | disposition home or self-care (01) ==
LOC: JER 07:57
DX: E11.649 Type 2 diabetes mellitus with hypoglycemia without coma (principal); Z79.4 Long term (current) use of insulin; E03.9 Hypothyroidism, unspecified
CPT/HCPCS: 36415; 70450-TC; 80053; 81003; 82962; 83735; 84100; 85025; 87086; 93005; 93010; 99285-25

== ENCOUNTER 2020-08-04 13:45 | Emergency (ER) | payer OTHER ==
[2020-08-04 13:59] VITALS: BP 149/93; PULSE 91; TEMP 98.8; BMI 32.9
== END 2020-08-04 15:15 | disposition left against medical advice (07) ==
LOC: JER 13:45
DX: E16.2 Hypoglycemia, unspecified (principal)
CPT/HCPCS: 82962; 99283-25

== ENCOUNTER 2021-05-09 17:42 | Inpatient (IN) | payer OTHER ==
[2021-05-09 18:35] LABS: VENOUS O2 SATURATION 53.5 % (70-80); VENOUS PCO2 27.1 mmHg (38-52)
[2021-05-09 18:36] LABS: BASO % 0.2 % (0-2.0); HEMATOCRIT 49.7 % (35.4-49); HEMOGLOBIN 16.6 GM/dL (11.7-16.9); LYMPH % 3.1 % (8-40); MCH 33.4 pg (25.7-33.7); MCHC 33.5 g/dl (32.0-35.9); MEAN CELL VOLUME 99.7 fl (80-96); MEAN PLT VOLUME 8.5 fl (7.5-11.1); MONO % 3.8 % (3.8-10.2); NEUT % 92.9 % (42.8-82.8); PLATELET COUNT 285 10^3/uL (134-434); RBC 4.98 M/mm3 (4.00-5.60); RDW 12.9 % (11.9-15.9); WHITE BLOOD COUNT 15.7 K/mm3 (4.0-10.0)
[2021-05-09 18:38] LABS: VENOUS PH 7.072 (7.310-7.410)
[2021-05-09] MEDS ORDERED: SODIUM CHLORIDE 0.9% 500 ML INFUS.BAG IV ONE (18:43)
[2021-05-09 18:55] LABS: CHLORIDE 100 mmol/L (98-107); SODIUM 133 mmol/L (136-145)
[2021-05-09 18:57] LABS: CALCIUM 9.7 mg/dL (8.5-10.1)
[2021-05-09 18:58] LABS: ANION GAP 23 MMOL/L (8-16); BLOOD UREA NITROGEN 31.8 mg/dL (7-18); CO2 11 mmol/L (21-32)
[2021-05-09 19:01] LABS: SGOT/AST 13 U/L (15-37); SGPT/ALT 28 U/L (13-61)
[2021-05-09 19:02] LABS: BILIRUBIN,TOTAL 0.7 mg/dL (0.2-1); TOT PROT 8.5 g/dl (6.4-8.2)
[2021-05-09 19:03] LABS: ACTIVATED PTT 34.4 SECONDS (25.2-36.5); ALK PHOS 113 U/L (45-117); INR 1.11 (0.83-1.09); PROTHROMBIN TIME (PATIENT) 12.8 SEC (9.7-13.0)
[2021-05-09 19:06] LABS: URINE APPEARANCE CLEAR; URINE BILIRUBIN NEGATIVE (NEGATIVE); URINE COLOR YELLOW; URINE GLUCOSE (UA) 3+ (NEGATIVE); URINE KETONE 4+ (NEGATIVE); URINE LEUK ESTERASE NEGATIVE (NEGATIVE); URINE NITRITE NEGATIVE (NEGATIVE); URINE PROTEIN NEGATIVE (NEGATIVE); URINE UROBILINOGEN 0.2 mg/dL (0.2-1.0)
[2021-05-09 19:11] LABS: ANISOCYTOSIS 1+; MACROCYTOSIS 0
[2021-05-09 19:19] LABS: GLUCOSE,RANDOM 526 mg/dL (74-106)
[2021-05-09] MEDS ORDERED: SODIUM CHLORIDE 1,000 ML IV SCH (19:45)
[2021-05-09] MEDS ORDERED: SODIUM CHLORIDE 0.45% 1,000 ML IV SCH (20:00)
[2021-05-09 20:09] LABS: CHLORIDE 102 mmol/L (98-107); SODIUM 134 mmol/L (136-145)
[2021-05-09 20:11] LABS: ANION GAP 19 MMOL/L (8-16); BLOOD UREA NITROGEN 30.7 mg/dL (7-18); CALCIUM 9.6 mg/dL (8.5-10.1); CO2 13 mmol/L (21-32)
[2021-05-09 20:15] LABS: CREATININE 1.9 mg/dL (0.55-1.3)
[2021-05-09 20:23] LABS: GLUCOSE,RANDOM 519 mg/dL (74-106)
[2021-05-09] MEDS ORDERED: INSULIN REGULAR HUMAN 100 UNITS/ML *VIAL* (FOR IVP) IVPUSH ONE (20:51)
[2021-05-09] MEDS ORDERED: INSULIN REGULAR 100 UNITS in SODIUM CHLORIDE 99 ML IVPB SCH ×2 (21:00→22:00)
[2021-05-09 21:05] LABS: CHLORIDE 102 mmol/L (98-107); SODIUM 132 mmol/L (136-145)
[2021-05-09 21:06] LABS: CALCIUM 8.8 mg/dL (8.5-10.1)
[2021-05-09 21:07] LABS: ANION GAP 19 MMOL/L (8-16); BLOOD UREA NITROGEN 29.4 mg/dL (7-18); CO2 11 mmol/L (21-32)
[2021-05-09 21:10] LABS: CREATININE 1.8 mg/dL (0.55-1.3)
[2021-05-09 21:14] LABS: GLUCOSE,RANDOM 518 mg/dL (74-106)
[2021-05-09] MEDS ORDERED: CHLORHEXIDINE GLUCONATE 4% CLEANSER FOR DECOLONIZATION TP SCH (22:00)
[2021-05-09] MEDS ORDERED: HEPARIN NA (PORCINE) 5,000 UNITS/ML 1ML VIAL ONE (22:06)
[2021-05-09] MEDS: HEPARIN NA (PORCINE) 5,000 UNITS/ML 1ML VIAL SQ SCH (22:08)
[2021-05-10 01:56] LABS: CALCIUM 9.3 mg/dL (8.5-10.1)
[2021-05-10 01:57] LABS: BLOOD UREA NITROGEN 29.1 mg/dL (7-18)
[2021-05-10 02:00] LABS: CREATININE 1.7 mg/dL (0.55-1.3)
[2021-05-10] MEDS ORDERED: D5-1/2NS+20 MEQ KCL - 20 MEQ/1,000 ML INFUS.BAG IV SCH ×2 (02:30→03:28)
[2021-05-10 06:41] LABS: BASO % 0.1 % (0-2.0); HEMATOCRIT 41.4 % (35.4-49); HEMOGLOBIN 14.3 GM/dL (11.7-16.9); LYMPH % 14.3 % (8-40); MCH 32.6 pg (25.7-33.7); MCHC 34.6 g/dl (32.0-35.9); MEAN CELL VOLUME 94.4 fl (80-96); MEAN PLT VOLUME 8.9 fl (7.5-11.1); NEUT % 73.6 % (42.8-82.8); PLATELET COUNT 255 10^3/uL (134-434); RBC 4.39 M/mm3 (4.00-5.60); RDW 13.2 % (11.9-15.9); WHITE BLOOD COUNT 13.7 K/mm3 (4.0-10.0)
[2021-05-10 06:42] LABS: CALCIUM 9.3 mg/dL (8.5-10.1); MAGNESIUM 2.4 mg/dL (1.8-2.4)
[2021-05-10 06:43] LABS: BLOOD UREA NITROGEN 29.7 mg/dL (7-18)
[2021-05-10 06:46] LABS: CREATININE 1.4 mg/dL (0.55-1.3); PHOSPHOROUS 1.2 mg/dL (2.5-4.9)
[2021-05-10] MEDS: INSULIN SLIDING SCALE (NOVOLOG) 1 VIAL SQ SCH ×3 (07:28→17:28)
[2021-05-10 07:51] VITALS: BMI 28.2
[2021-05-10] MEDS: HEPARIN NA (PORCINE) 5,000 UNITS/ML 1ML VIAL SQ SCH ×3 (08:05→21:42)
[2021-05-10] MEDS ORDERED: NAPH,MB-DB/K PH,MBDB POWDER PACKET PO ONE (09:15)
[2021-05-10] MEDS ORDERED: MUPIROCIN 2% TOPICAL OINTMENT FOR DECOLONIZATION NS SCH (10:00)
[2021-05-10] MEDS: SODIUM CHLORIDE 1,000 ML IV SCH (11:30)
[2021-05-10] MEDS ORDERED: DEXTROSE 50%-WATER 25 GM/50 ML DISP.SYRIN IVPUSH ONE ×2 (11:30)
[2021-05-10] MEDS ORDERED: INSULIN (LEVEMIR) 100 UNITS/ML UNITS SQ SCH (22:00)
[2021-05-11] MEDS: SODIUM CHLORIDE 1,000 ML IV SCH ×3 (01:46→15:32)
[2021-05-11] MEDS: INSULIN SLIDING SCALE (NOVOLOG) 1 VIAL SQ SCH ×3 (06:03→17:26)
[2021-05-11] MEDS: HEPARIN NA (PORCINE) 5,000 UNITS/ML 1ML VIAL SQ SCH ×3 (06:03→21:03)
[2021-05-11 08:57] LABS: BASO % 0.1 % (0-2.0); EOS % 0.2 % (0-4.5); HEMATOCRIT 36.5 % (35.4-49); HEMOGLOBIN 12.9 GM/dL (11.7-16.9); LYMPH % 26.7 % (8-40); MCH 33.8 pg (25.7-33.7); MCHC 35.4 g/dl (32.0-35.9); MEAN CELL VOLUME 95.4 fl (80-96); MEAN PLT VOLUME 8.8 fl (7.5-11.1); MONO % 8.6 % (3.8-10.2); NEUT % 64.4 % (42.8-82.8); PLATELET COUNT 222 10^3/uL (134-434); RBC 3.83 M/mm3 (4.00-5.60); RDW 13.5 % (11.9-15.9); WHITE BLOOD COUNT 8.5 K/mm3 (4.0-10.0)
[2021-05-11 09:18] LABS: CALCIUM 8.9 mg/dL (8.5-10.1)
[2021-05-11 09:19] LABS: BLOOD UREA NITROGEN 13.8 mg/dL (7-18)
[2021-05-11 09:21] LABS: CREATININE 0.9 mg/dL (0.55-1.3)
[2021-05-11 09:23] LABS: BILIRUBIN,TOTAL 1.3 mg/dL (0.2-1)
[2021-05-11 09:33] LABS: ALBUMIN 3.5 g/dl (3.4-5.0); TOT PROT 5.8 g/dl (6.4-8.2)
[2021-05-11] MEDS: ALPRAZolam 0.25 MG TABLET PO PRN (20:46)
[2021-05-11] MEDS ORDERED: INSULIN (NOVOLOG) ASPART 100 UNITS/ML 10ML VIAL SQ ONE (22:10)
[2021-05-12] MEDS: HEPARIN NA (PORCINE) 5,000 UNITS/ML 1ML VIAL SQ SCH ×3 (06:34→21:33)
[2021-05-12] MEDS: INSULIN (LEVEMIR) 100 UNITS/ML UNITS SQ SCH (06:35)
[2021-05-12] MEDS: INSULIN SLIDING SCALE (NOVOLOG) 1 VIAL SQ SCH ×3 (06:36→17:19)
[2021-05-12] MEDS ORDERED: INSULIN (LEVEMIR) 100 UNITS/ML UNITS SQ SCH (07:00)
[2021-05-12] MEDS: SODIUM CHLORIDE 1,000 ML IV SCH (11:51)
[2021-05-12] MEDS: ALPRAZolam 0.25 MG TABLET PO PRN (23:08)
[2021-05-13] MEDS: INSULIN SLIDING SCALE (NOVOLOG) 1 VIAL SQ SCH ×3 (06:25→17:52)
[2021-05-13] MEDS: HEPARIN NA (PORCINE) 5,000 UNITS/ML 1ML VIAL SQ SCH ×2 (06:25→13:39)
[2021-05-13] MEDS: INSULIN (LEVEMIR) 100 UNITS/ML UNITS SQ SCH (06:26)
[2021-05-13 08:39] LABS: CALCIUM 9.1 mg/dL (8.5-10.1)
[2021-05-13 08:40] LABS: ALBUMIN 3.5 g/dl (3.4-5.0); BLOOD UREA NITROGEN 13.9 mg/dL (7-18)
[2021-05-13 08:43] LABS: CREATININE 0.7 mg/dL (0.55-1.3)
[2021-05-13 08:47] LABS: TOT PROT 5.8 g/dl (6.4-8.2)
[2021-05-13 08:48] LABS: BILIRUBIN,TOTAL 0.8 mg/dL (0.2-1)
[2021-05-13 09:06] LABS: BASO % 0.4 % (0-2.0); EOS % 0.5 % (0-4.5); HEMATOCRIT 36.9 % (35.4-49); HEMOGLOBIN 13.1 GM/dL (11.7-16.9); LYMPH % 41.8 % (8-40); MCH 33.9 pg (25.7-33.7); MCHC 35.7 g/dl (32.0-35.9); MEAN CELL VOLUME 95.1 fl (80-96); MEAN PLT VOLUME 8.5 fl (7.5-11.1); MONO % 9.7 % (3.8-10.2); NEUT % 47.6 % (42.8-82.8); PLATELET COUNT 181 10^3/uL (134-434); RBC 3.88 M/mm3 (4.00-5.60); RDW 13.3 % (11.9-15.9); WHITE BLOOD COUNT 4.8 K/mm3 (4.0-10.0)
[2021-05-13 14:19] VITALS: BP 116/75; PULSE 88; TEMP 97.9
== END 2021-05-13 17:51 | disposition home or self-care (01) | DRG 638 ==
LOC: JER 17:42 → JERBED 19:20 → JICU 05-10 00:24 → J4S 05-10 20:40
PROVIDERS: ADMIT Internal Medicine; ATTEND Internal Medicine
DX: E11.10 Type 2 diabetes mellitus with ketoacidosis without coma (principal); N17.9 Acute kidney failure, unspecified; F23 Brief psychotic disorder; E03.9 Hypothyroidism, unspecified; I10 Essential (primary) hypertension; E78.5 Hyperlipidemia, unspecified; Z79.4 Long term (current) use of insulin; R53.83 Other fatigue
CPT/HCPCS: 36415; 70450-TC; 71045-TC-FY; 80048; 80053; 81003; 82010; 82803; 82947; 82962; 83036; 83735; 84100; 84439; 84443; 84481; 84484; 85025; 85027; 85610; 85730; 87086; 93005; 93010; 99285-25; C9803-CS; J1644; U0003; U0005

== ENCOUNTER 2021-05-31 06:32 | Emergency (ER) | payer OTHER ==
[2021-05-31 06:43] VITALS: BP 159/80; PULSE 93; BMI 21.9
== END 2021-05-31 07:35 | disposition left against medical advice (07) ==
LOC: JER 06:32
DX: E16.2 Hypoglycemia, unspecified (principal); T38.3X5A Adverse effect of insulin and oral hypoglycemic [antidiabetic] drugs, initial encounter
CPT/HCPCS: 82962; 99283-25

== ENCOUNTER 2021-10-11 07:54 | Inpatient (IN) | payer OTHER ==
[2021-10-11] MEDS ORDERED: DEXTROSE 50%-WATER 25 GM/50 ML DISP.SYRIN ONE ×2 (07:58→12:47)
[2021-10-11 08:08] VITALS: BMI 29.2
[2021-10-11] MEDS ORDERED: DEXTROSE 50%-WATER - 25 GM/50 ML VIAL IVPUSH ONE ×2 (08:46→12:47)
[2021-10-11] MEDS: DEXTROSE 5%-WATER - 1,000 ML IV SCH ×2 (09:23→22:17)
[2021-10-11 09:37] LABS: BASO % 0.2 % (0-2.0); EOS % 0.1 % (0-4.5); HEMATOCRIT 38.5 % (35.4-49); HEMOGLOBIN 13.7 GM/dL (11.7-16.9); LYMPH % 8.9 % (8-40); MCH 33.6 pg (25.7-33.7); MCHC 35.4 g/dl (32.0-35.9); MEAN CELL VOLUME 94.7 fl (80-96); MEAN PLT VOLUME 7.9 fl (7.5-11.1); MONO % 9.6 % (3.8-10.2); NEUT % 81.2 % (42.8-82.8); PLATELET COUNT 247 10^3/uL (134-434); RBC 4.07 M/mm3 (4.00-5.60); RDW 13.7 % (11.9-15.9); WHITE BLOOD COUNT 7.4 K/mm3 (4.0-10.0)
[2021-10-11 09:39] LABS: PH,URINE 7.5 (5.0-8.0); URINE APPEARANCE CLEAR; URINE BILIRUBIN NEGATIVE (NEGATIVE); URINE COLOR YELLOW; URINE GLUCOSE (UA) 1+ (NEGATIVE); URINE KETONE NEGATIVE (NEGATIVE); URINE LEUK ESTERASE NEGATIVE (NEGATIVE); URINE NITRITE NEGATIVE (NEGATIVE); URINE PROTEIN NEGATIVE (NEGATIVE)
[2021-10-11 10:00] LABS: BLOOD UREA NITROGEN 8.9 mg/dL (7-18); CALCIUM 9.1 mg/dL (8.5-10.1); MAGNESIUM 2.1 mg/dL (1.8-2.4)
[2021-10-11 10:01] LABS: ALBUMIN 3.9 g/dl (3.4-5.0)
[2021-10-11 10:04] LABS: CREATININE 0.7 mg/dL (0.55-1.3)
[2021-10-11 10:05] LABS: BILIRUBIN,TOTAL 0.4 mg/dL (0.2-1); TOT PROT 6.9 g/dl (6.4-8.2)
[2021-10-11] MEDS ORDERED: DEXTROSE 5%-WATER - 1,000 ML IV SCH (13:00)
[2021-10-11 17:47] VITALS: RESP 18
[2021-10-11] MEDS ORDERED: DEXTROSE 5%-0.45% SALINE 1,000 ML IV SCH (23:30)
[2021-10-12] MEDS: INSULIN SLIDING SCALE (NOVOLOG) 1 VIAL SQ SCH ×2 (06:09→12:57)
[2021-10-12] MEDS ORDERED: LEVOTHYROXINE NA 75 MCG TABLET (FP) PO SCH (07:00)
[2021-10-12 10:00] LABS: BASO % 0.3 % (0-2.0); EOS % 0.8 % (0-4.5); HEMATOCRIT 44.3 % (35.4-49); HEMOGLOBIN 15.6 GM/dL (11.7-16.9); LYMPH % 29.1 % (8-40); MCH 33.7 pg (25.7-33.7); MCHC 35.3 g/dl (32.0-35.9); MEAN CELL VOLUME 95.5 fl (80-96); MEAN PLT VOLUME 7.5 fl (7.5-11.1); MONO % 10.1 % (3.8-10.2); NEUT % 59.7 % (42.8-82.8); PLATELET COUNT 255 10^3/uL (134-434); RBC 4.63 M/mm3 (4.00-5.60); RDW 14.3 % (11.9-15.9); WHITE BLOOD COUNT 7.8 K/mm3 (4.0-10.0)
[2021-10-12] MEDS ORDERED: HEPARIN NA (PORCINE) 5,000 UNITS/ML 1ML VIAL SQ SCH (10:00)
[2021-10-12 10:26] LABS: CREATININE 0.7 mg/dL (0.55-1.3)
[2021-10-12 10:27] LABS: ALBUMIN 3.7 g/dl (3.4-5.0); BLOOD UREA NITROGEN 8.8 mg/dL (7-18); CALCIUM 8.7 mg/dL (8.5-10.1)
[2021-10-12 10:28] LABS: BILIRUBIN,TOTAL 0.7 mg/dL (0.2-1); TOT PROT 6.7 g/dl (6.4-8.2)
[2021-10-12 15:06] VITALS: BP 144/90; PULSE 96; TEMP 98.4
== END 2021-10-12 17:14 | disposition home or self-care (01) | DRG 637 ==
LOC: JER 07:54 → JERBED 12:17 → J5S 20:00
PROVIDERS: ADMIT Internal Medicine; ATTEND Internal Medicine
DX: E10.649 Type 1 diabetes mellitus with hypoglycemia without coma (principal); U07.1 COVID-19; R41.0 Disorientation, unspecified
CPT/HCPCS: 36415; 70450-TC; 71045-TC-FY; 80053; 81003; 82550; 82962; 83036; 83735; 84443; 84484; 85025; 87086; 93005; 93010; 99285-25; C9803-CS; J1644; U0003; U0005

== ENCOUNTER 2021-10-22 06:06 | Emergency (ER) | payer OTHER ==
[2021-10-22 06:17] VITALS: BP 125/78; PULSE 80; RESP 20; BMI 20.9
[2021-10-22] MEDS ORDERED: DEXTROSE 50%-WATER 25 GM/50 ML DISP.SYRIN ONE (07:17)
[2021-10-22] MEDS ORDERED: DEXTROSE 50%-WATER - 25 GM/50 ML VIAL IVPUSH ONE (07:19)
[2021-10-22 07:45] LABS: VENOUS O2 SATURATION 33.3 % (70-80); VENOUS PCO2 51.1 mmHg (38-52); VENOUS PH 7.35 (7.310-7.410)
[2021-10-22 07:49] LABS: BASO % 0.1 % (0-2.0); HEMATOCRIT 43.4 % (35.4-49); HEMOGLOBIN 14.7 GM/dL (11.7-16.9); MCHC 33.9 g/dl (32.0-35.9); MEAN CELL VOLUME 97.5 fl (80-96); MEAN PLT VOLUME 7.1 fl (7.5-11.1); MONO % 8.2 % (3.8-10.2); NEUT % 84.7 % (42.8-82.8); PLATELET COUNT 338 10^3/uL (134-434); RBC 4.45 M/mm3 (4.00-5.60); RDW 14.6 % (11.9-15.9); WHITE BLOOD COUNT 11.2 K/mm3 (4.0-10.0)
[2021-10-22 08:16] LABS: CALCIUM 9.5 mg/dL (8.5-10.1)
[2021-10-22 08:17] LABS: ALBUMIN 3.7 g/dl (3.4-5.0); BLOOD UREA NITROGEN 6.8 mg/dL (7-18); MAGNESIUM 2.3 mg/dL (1.8-2.4)
[2021-10-22 08:20] LABS: CREATININE 0.9 mg/dL (0.55-1.3)
[2021-10-22 08:21] LABS: BILIRUBIN,TOTAL 0.4 mg/dL (0.2-1); TOT PROT 6.5 g/dl (6.4-8.2)
[2021-10-22 08:52] LABS: PH,URINE 6.5 (5.0-8.0); URINE APPEARANCE CLEAR; URINE BILIRUBIN NEGATIVE (NEGATIVE); URINE COLOR YELLOW; URINE GLUCOSE (UA) TRACE (NEGATIVE); URINE KETONE TRACE (NEGATIVE); URINE LEUK ESTERASE NEGATIVE (NEGATIVE); URINE NITRITE NEGATIVE (NEGATIVE); URINE PROTEIN NEGATIVE (NEGATIVE); URINE UROBILINOGEN 0.2 mg/dL (0.2-1.0)
== END 2021-10-22 10:52 | disposition left against medical advice (07) ==
LOC: JER 06:06
PROC: 3E033GC Introduction of Other Therapeutic Substance into Peripheral Vein, Percutaneous Approach (ICD-10-PCS; principal; 2021-10-22)
DX: E11.649 Type 2 diabetes mellitus with hypoglycemia without coma (principal); S02.2XXA Fracture of nasal bones, initial encounter for closed fracture; Y99.9 Unspecified external cause status
CPT/HCPCS: 36415; 70450-TC; 70486-TC; 72125-TC; 80053; 81003; 82803; 82962; 83735; 84100; 85025; 87086; 93005; 93010; 99285-25

== ENCOUNTER 2021-12-09 07:33 | Emergency (ER) | payer OTHER ==
[2021-12-09 08:20] VITALS: TEMP 98.3; BMI 21.9
[2021-12-09 09:18] LABS: BASO % 0.1 % (0-2.0); HEMATOCRIT 47.4 % (35.4-49); HEMOGLOBIN 16.1 GM/dL (11.7-16.9); LYMPH % 5.7 % (8-40); MCH 34.1 pg (25.7-33.7); MEAN CELL VOLUME 100.2 fl (80-96); MEAN PLT VOLUME 8.1 fl (7.5-11.1); MONO % 5.8 % (3.8-10.2); NEUT % 88.4 % (42.8-82.8); PLATELET COUNT 361 10^3/uL (134-434); RBC 4.73 M/mm3 (4.00-5.60); RDW 14.9 % (11.9-15.9); WHITE BLOOD COUNT 12.8 K/mm3 (4.0-10.0)
[2021-12-09 09:47] LABS: CHLORIDE 103 mmol/L (98-107); SODIUM 140 mmol/L (136-145)
[2021-12-09 09:50] LABS: ALBUMIN 4.7 g/dl (3.4-5.0); ANION GAP 10 MMOL/L (8-16); BLOOD UREA NITROGEN 10.7 mg/dL (7-18); CO2 27 mmol/L (21-32); GLUCOSE,RANDOM 87 mg/dL (74-106)
[2021-12-09 09:53] LABS: CREATININE 0.9 mg/dL (0.55-1.3); SGOT/AST 56 U/L (15-37); SGPT/ALT 31 U/L (13-61)
[2021-12-09 09:55] LABS: BILIRUBIN,TOTAL 0.7 mg/dL (0.2-1); TOT PROT 8.8 g/dl (6.4-8.2)
[2021-12-09 09:56] LABS: ALK PHOS 77 U/L (45-117)
[2021-12-09 10:13] LABS: PH,URINE 5.5 (5.0-8.0); URINE APPEARANCE CLEAR; URINE BILIRUBIN NEGATIVE (NEGATIVE); URINE COLOR YELLOW; URINE GLUCOSE (UA) NEGATIVE (NEGATIVE); URINE KETONE 1+ (NEGATIVE); URINE LEUK ESTERASE NEGATIVE (NEGATIVE); URINE NITRITE NEGATIVE (NEGATIVE); URINE PROTEIN NEGATIVE (NEGATIVE); URINE UROBILINOGEN 0.2 mg/dL (0.2-1.0)
[2021-12-09 10:33] LABS: COCAINE, UR NEGATIVE (NEGATIVE); METHADONE, UR NEGATIVE (NEGATIVE); OPIATES, URI NEGATIVE (NEGATIVE); PHENCYCLIDINE,URINE NEGATIVE (NEGATIVE); URINE BARBITURATES NEGATIVE (NEGATIVE); URINE BENZODIAZEPINES NEGATIVE (NEGATIVE)
[2021-12-09 10:37] LABS: URINE AMPHETAMINES NEGATIVE (NEGATIVE)
[2021-12-09 11:30] VITALS: BP 115/70; PULSE 74; RESP 18
== END 2021-12-09 12:41 | disposition home or self-care (01) ==
LOC: JER 07:33
DX: E16.2 Hypoglycemia, unspecified (principal)
CPT/HCPCS: 36415; 70450-TC; 71045-TC-FY; 80053; 80307; 81003; 82550; 82553; 82962; 84439; 84443; 84484; 85025; 93005; 93010; 99285-25

== ENCOUNTER 2022-01-26 09:54 | Inpatient (IN) | payer OTHER ==
[2022-01-26] MEDS ORDERED: DEXTROSE 50%-WATER 25 GM/50 ML DISP.SYRIN ONE ×2 (10:06→15:10)
[2022-01-26] MEDS ORDERED: GLUCAGON 1 MG KIT ONE (10:27)
[2022-01-26] MEDS ORDERED: RAPID SEQUENCE INTUBATION KIT NR ONE ×2 (10:27→10:36)
[2022-01-26] MEDS ORDERED: ETOMIDATE 40 MG/20 ML VIAL IVPUSH ONE (10:53)
[2022-01-26] MEDS ORDERED: DEXTROSE 50%-WATER - 25 GM/50 ML VIAL IVPUSH ONE (10:53)
[2022-01-26] MEDS ORDERED: ROCURONIUM BROMIDE 50 MG/5 ML VIAL IV ONE (10:54)
[2022-01-26 11:32] LABS: ARTERIAL BLD GAS O2 SATURATION 99.3 % (95-98); ARTERIAL BLOOD GAS BASE EXCESS -5.3 mmol/L (-2-2); ARTERIAL BLOOD GAS PO2 214.8 mmHg (80-100); ARTERIAL BLOOD GAS pH 7.297 (7.350-7.450)
[2022-01-26 11:35] LABS: VENT MODE A/C; VENT RATE 12
[2022-01-26 11:41] LABS: EPI CELLS 6 /uL (0-25.1); HYALINE CASTS 1 /uL (0-3.1); URINE APPEARANCE CLEAR; URINE BACTERIA 7 /uL (0-1359); URINE BILIRUBIN NEGATIVE (NEGATIVE); URINE COLOR YELLOW; URINE GLUCOSE (UA) 3+ (NEGATIVE); URINE KETONE NEGATIVE (NEGATIVE); URINE LEUK ESTERASE NEGATIVE (NEGATIVE); URINE NITRITE NEGATIVE (NEGATIVE); URINE PROTEIN NEGATIVE (NEGATIVE); URINE RBC 28 /uL (0-23.9); URINE UROBILINOGEN 0.2 mg/dL (0.2-1.0); URINE WBC 5 /uL (0-25.8)
[2022-01-26 11:47] LABS: METHADONE, UR NEGATIVE (NEGATIVE); PHENCYCLIDINE,URINE NEGATIVE (NEGATIVE); URINE AMPHETAMINES NEGATIVE (NEGATIVE); URINE BARBITURATES NEGATIVE (NEGATIVE)
[2022-01-26 11:48] LABS: COCAINE, UR NEGATIVE (NEGATIVE); OPIATES, URI NEGATIVE (NEGATIVE); URINE BENZODIAZEPINES NEGATIVE (NEGATIVE)
[2022-01-26] MEDS: PROPOFOL 1,000,000 MCG/100 ML VIAL IVPB SCH (12:10)
[2022-01-26] MEDS ORDERED: PIPERACILLIN/TAZOB 4.5 GM 4.5 GM/100 ML BAG IVPB ONE ×2 (12:10→12:21)
[2022-01-26] MEDS ORDERED: VANCOMYCIN 1 GM in D5W (PRE-DOCKED) 1,000 MG/250 ML IVPB ONE (12:10)
[2022-01-26] MEDS ORDERED: PROPOFOL 1,000,000 MCG/100 ML VIAL ONE (12:11)
[2022-01-26] MEDS ORDERED: VANCOMYCIN/WATER FOR INJ (PEG) 1,000 MG/200 ML BAG IVPB ONE (12:21)
[2022-01-26 12:24] LABS: BASO % 0.1 % (0-2.0); HEMATOCRIT 45.5 % (35.4-49); HEMOGLOBIN 15.1 GM/dL (11.7-16.9); LYMPH % 4.9 % (8-40); MCH 34.3 pg (25.7-33.7); MCHC 33.2 g/dl (32.0-35.9); MEAN CELL VOLUME 103.1 fl (80-96); MEAN PLT VOLUME 7.6 fl (7.5-11.1); MONO % 5.7 % (3.8-10.2); NEUT % 89.3 % (42.8-82.8); PLATELET COUNT 388 10^3/uL (134-434); RBC 4.41 M/mm3 (4.00-5.60); RDW 14.7 % (11.9-15.9); WHITE BLOOD COUNT 4.8 K/mm3 (4.0-10.0)
[2022-01-26 12:37] LABS: INR 0.9 (0.83-1.09); PROTHROMBIN TIME (PATIENT) 10.3 SEC (9.7-13.0)
[2022-01-26 12:40] LABS: ACTIVATED PTT 26.7 SECONDS (25.2-36.5)
[2022-01-26 12:44] LABS: ALBUMIN 3.3 g/dl (3.4-5.0); CALCIUM 8.4 mg/dL (8.5-10.1)
[2022-01-26 12:45] LABS: BLOOD UREA NITROGEN 14.8 mg/dL (7-18); MAGNESIUM 2.3 mg/dL (1.8-2.4)
[2022-01-26 12:47] LABS: CREATININE 0.9 mg/dL (0.55-1.3)
[2022-01-26 12:48] LABS: PHOSPHOROUS 3.4 mg/dL (2.5-4.9)
[2022-01-26 12:49] LABS: BILIRUBIN,TOTAL 0.8 mg/dL (0.2-1)
[2022-01-26 12:53] LABS: N-TERMINAL BNP 263.1 pg/ml (5-125)
[2022-01-26 12:54] LABS: LACTIC ACID 3.5 mmol/L (0.4-2.0)
[2022-01-26] MEDS ORDERED: DEXTROSE 10%-WATER 500 ML INFUS.BAG IV STA (13:23)
[2022-01-26] MEDS ORDERED: DEXTROSE 50%-WATER - 25 GM/50 ML VIAL IVPUSH PRN ×2 (15:25→15:42)
[2022-01-26] MEDS ORDERED: LEVOTHYROXINE SODIUM 100 MCG 5 ML VIAL IVPUSH ONE ×4 (15:28→20:45)
[2022-01-26] MEDS ORDERED: DEXTROSE 10%-WATER - 1,000 ML IV SCH (15:30)
[2022-01-26] MEDS: NORMAL SALINE IVPB SCH (15:55)
[2022-01-26] MEDS: DEXTROSE IVPB SCH (15:55)
[2022-01-26] MEDS: WATER IVPB SCH (15:55)
[2022-01-26] MEDS ORDERED: MIDAZOLAM HCL 2 MG/2 ML SINGLE DOSE VIAL ONE (16:34)
[2022-01-26] MEDS ORDERED: ACETAMINOPHEN 1000 MG/100 ML BAG IVPB ONE (17:36)
[2022-01-26] MEDS ORDERED: DEXTROSE 5%-LACTATED RINGERS 1,000 ML IV ONE (18:03)
[2022-01-26] MEDS ORDERED: DEXTROSE 5%-LACTATED RINGERS 1,000 ML IV SCH (18:15)
[2022-01-26] MEDS ORDERED: LIOTHYRONINE SODIUM 25 MCG TABLET PO ONE (19:22)
[2022-01-26] MEDS ORDERED: LIOTHYRONINE SODIUM 25 MCG TABLET PO SCH (20:45)
[2022-01-26] MEDS ORDERED: LIOTHYRONINE SODIUM 5 MCG TABLET PO SCH (20:47)
[2022-01-26] MEDS: CHLORHEXIDINE GLUCONATE 4% CLEANSER FOR DECOLONIZATION TP SCH (21:45)
[2022-01-26] MEDS ORDERED: CHLORHEXIDINE GLUCONATE 4% CLEANSER FOR DECOLONIZATION TP SCH (22:00)
[2022-01-26] MEDS: MUPIROCIN 2% TOPICAL OINTMENT FOR DECOLONIZATION NS SCH (22:40)
[2022-01-27] MEDS: PIPERACILLIN/TAZOB 4.5 GM 4.5 GM in DEXTROSE 5%-WATER 100 ML IVPB SCH ×3 (01:34→17:00)
[2022-01-27] MEDS: WATER IVPB SCH (01:41)
[2022-01-27] MEDS: DEXTROSE IVPB SCH (01:41)
[2022-01-27] MEDS: NORMAL SALINE IVPB SCH (01:41)
[2022-01-27] MEDS ORDERED: PIPERACILLIN/TAZOB 4.5 GM 4.5 GM in DEXTROSE 5%-WATER 100 ML IVPB SCH (02:00)
[2022-01-27 05:55] LABS: ARTERIAL BLD GAS O2 SATURATION 97.7 % (95-98); ARTERIAL BLOOD GAS BASE EXCESS 0.6 mmol/L (-2-2); ARTERIAL BLOOD GAS PO2 94.8 mmHg (80-100)
[2022-01-27] MEDS ORDERED: LEVOTHYROXINE SODIUM 100 MCG 5 ML VIAL IVPUSH SCH ×2 (06:00→09:14)
[2022-01-27 06:10] LABS: ALLENS TEST POSITIVE
[2022-01-27 06:11] LABS: VENT MODE A/C; VENT RATE 16
[2022-01-27 08:04] LABS: HEMATOCRIT 37.1 % (35.4-49); HEMOGLOBIN 12.6 GM/dL (11.7-16.9); MCH 34.6 pg (25.7-33.7); MEAN CELL VOLUME 101.8 fl (80-96); PLATELET COUNT 344 10^3/uL (134-434); RBC 3.65 M/mm3 (4.00-5.60); RDW 14.6 % (11.9-15.9); WHITE BLOOD COUNT 8.6 K/mm3 (4.0-10.0)
[2022-01-27 08:33] LABS: CALCIUM 7.6 mg/dL (8.5-10.1)
[2022-01-27 08:34] LABS: BLOOD UREA NITROGEN 9.1 mg/dL (7-18); MAGNESIUM 1.8 mg/dL (1.8-2.4)
[2022-01-27 08:52] LABS: ALBUMIN 2.3 g/dl (3.4-5.0); TOT PROT 4.8 g/dl (6.4-8.2)
[2022-01-27 09:16] LABS: ANISOCYTOSIS 0; MACROCYTOSIS 0
[2022-01-27] MEDS: methylPREDNISolone NA SUCC 40 MG/1 ML VIAL IVPUSH SCH (09:33)
[2022-01-27] MEDS: MUPIROCIN 2% TOPICAL OINTMENT FOR DECOLONIZATION NS SCH ×2 (09:33→22:09)
[2022-01-27] MEDS: ENOXAPARIN NA (PORCINE) 40 MG/0.4 ML DISP.SYRIN SQ SCH (09:33)
[2022-01-27] MEDS: LACTATED RINGERS SOLUTION 1,000 ML/1,000 ML INFUS.BAG IV SCH (12:00)
[2022-01-27] MEDS: INSULIN SLIDING SCALE (NOVOLOG) 1 VIAL SQ SCH ×2 (16:33→22:22)
[2022-01-27] MEDS ORDERED: MAGNESIUM 1GM/D5W - 1 GM/100 ML IVPB IVPB ONE (19:00)
[2022-01-27] MEDS: PROPOFOL 1,000,000 MCG/100 ML VIAL IVPB SCH (22:09)
[2022-01-27] MEDS: CHLORHEXIDINE GLUCONATE 4% CLEANSER FOR DECOLONIZATION TP SCH (22:10)
[2022-01-27] MEDS: NAPH,MB-DB/K PH,MBDB POWDER PACKET NGT SCH (22:22)
[2022-01-28] MEDS: PIPERACILLIN/TAZOB 3.375 GM 3.375 GM in DEXTROSE 5%-WATER - 50 ML IVPB SCH ×3 (02:44→17:08)
[2022-01-28 06:29] LABS: ARTERIAL BLD GAS O2 SATURATION 97.2 % (95-98); ARTERIAL BLOOD GAS BASE EXCESS -0.4 mmol/L (-2-2); ARTERIAL BLOOD GAS PO2 86.4 mmHg (80-100); ARTERIAL BLOOD GAS pH 7.476 (7.350-7.450)
[2022-01-28 06:32] LABS: VENT MODE A/C; VENT RATE 13
[2022-01-28] MEDS: LEVOTHYROXINE SODIUM 100 MCG 5 ML VIAL IVPUSH SCH (06:50)
[2022-01-28] MEDS: NAPH,MB-DB/K PH,MBDB POWDER PACKET NGT SCH ×2 (06:50→14:54)
[2022-01-28] MEDS: INSULIN SLIDING SCALE (NOVOLOG) 1 VIAL SQ SCH ×4 (06:57→21:12)
[2022-01-28] MEDS: PROPOFOL 1,000,000 MCG/100 ML VIAL IVPB SCH ×2 (07:00→17:15)
[2022-01-28 07:54] LABS: BASO % 0.2 % (0-2.0); HEMOGLOBIN 11.6 GM/dL (11.7-16.9); LYMPH % 13.8 % (8-40); MCH 35.8 pg (25.7-33.7); MCHC 35.3 g/dl (32.0-35.9); MEAN CELL VOLUME 101.5 fl (80-96); MEAN PLT VOLUME 7.7 fl (7.5-11.1); MONO % 6.5 % (3.8-10.2); NEUT % 79.5 % (42.8-82.8); PLATELET COUNT 329 10^3/uL (134-434); RBC 3.25 M/mm3 (4.00-5.60); RDW 14.5 % (11.9-15.9)
[2022-01-28 08:13] LABS: INR 1.21 (0.83-1.09)
[2022-01-28 08:14] LABS: ACTIVATED PTT 25.5 SECONDS (25.2-36.5)
[2022-01-28 08:25] LABS: BLOOD UREA NITROGEN 17.2 mg/dL (7-18); CALCIUM 7.6 mg/dL (8.5-10.1)
[2022-01-28 08:29] LABS: BILIRUBIN,TOTAL 1.3 mg/dL (0.2-1); TOT PROT 4.5 g/dl (6.4-8.2)
[2022-01-28] MEDS: MUPIROCIN 2% TOPICAL OINTMENT FOR DECOLONIZATION NS SCH ×2 (10:25→21:11)
[2022-01-28] MEDS: methylPREDNISolone NA SUCC 40 MG/1 ML VIAL IVPUSH SCH (10:26)
[2022-01-28] MEDS: PANTOPRAZOLE SODIUM 40 MG VIAL IVPUSH SCH (10:26)
[2022-01-28] MEDS: ENOXAPARIN NA (PORCINE) 40 MG/0.4 ML DISP.SYRIN SQ SCH (10:27)
[2022-01-28] MEDS: LACTATED RINGERS SOLUTION 1,000 ML/1,000 ML INFUS.BAG IV SCH (12:50)
[2022-01-28] MEDS ORDERED: DEXTROSE 50%-WATER - 25 GM/50 ML VIAL IVPUSH PRN (17:13)
[2022-01-28] MEDS: levETIRAcetam 500 MG/5 ML INJECTION VIAL IVPB SCH (21:11)
[2022-01-28] MEDS: CHLORHEXIDINE GLUCONATE 4% CLEANSER FOR DECOLONIZATION TP SCH (21:11)
[2022-01-29] MEDS: PIPERACILLIN/TAZOB 3.375 GM 3.375 GM in DEXTROSE 5%-WATER - 50 ML IVPB SCH ×3 (01:02→17:22)
[2022-01-29] MEDS: INSULIN SLIDING SCALE (NOVOLOG) 1 VIAL SQ SCH ×4 (06:01→21:31)
[2022-01-29] MEDS: LEVOTHYROXINE SODIUM 100 MCG 5 ML VIAL IVPUSH SCH (06:02)
[2022-01-29 06:37] LABS: ARTERIAL BLD GAS O2 SATURATION 98.5 % (95-98); ARTERIAL BLOOD GAS BASE EXCESS 0 mmol/L (-2-2); ARTERIAL BLOOD GAS PO2 119.2 mmHg (80-100); ARTERIAL BLOOD GAS pH 7.462 (7.350-7.450)
[2022-01-29 06:48] LABS: ALLENS TEST POSITIVE; VENT MODE A/C; VENT RATE 13
[2022-01-29] MEDS ORDERED: INSULIN (LEVEMIR) 100 UNITS/ML UNITS SQ SCH (07:00)
[2022-01-29 08:19] LABS: BASO % 0.1 % (0-2.0); HEMATOCRIT 32.2 % (35.4-49); INR 1.07 (0.83-1.09); LYMPH % 12.2 % (8-40); MCH 34.7 pg (25.7-33.7); MCHC 34.1 g/dl (32.0-35.9); MEAN CELL VOLUME 101.9 fl (80-96); MEAN PLT VOLUME 7.6 fl (7.5-11.1); MONO % 5.9 % (3.8-10.2); NEUT % 81.8 % (42.8-82.8); PLATELET COUNT 352 10^3/uL (134-434); PROTHROMBIN TIME (PATIENT) 12.3 SEC (9.7-13.0); RBC 3.15 M/mm3 (4.00-5.60); RDW 14.5 % (11.9-15.9); WHITE BLOOD COUNT 11.1 K/mm3 (4.0-10.0)
[2022-01-29 08:21] LABS: ACTIVATED PTT 22.3 SECONDS (25.2-36.5)
[2022-01-29 08:40] LABS: BLOOD UREA NITROGEN 16.6 mg/dL (7-18)
[2022-01-29 08:41] LABS: BILIRUBIN,TOTAL 1.1 mg/dL (0.2-1); TOT PROT 4.6 g/dl (6.4-8.2)
[2022-01-29 08:42] LABS: CALCIUM 8.1 mg/dL (8.5-10.1)
[2022-01-29] MEDS: levETIRAcetam 500 MG/5 ML INJECTION VIAL IVPB SCH ×2 (09:02→21:31)
[2022-01-29] MEDS: MUPIROCIN 2% TOPICAL OINTMENT FOR DECOLONIZATION NS SCH ×2 (09:05→21:31)
[2022-01-29] MEDS: PANTOPRAZOLE SODIUM 40 MG VIAL IVPUSH SCH (09:10)
[2022-01-29] MEDS: methylPREDNISolone NA SUCC 40 MG/1 ML VIAL IVPUSH SCH (09:10)
[2022-01-29] MEDS: ENOXAPARIN NA (PORCINE) 40 MG/0.4 ML DISP.SYRIN SQ SCH (09:10)
[2022-01-29] MEDS: LACTATED RINGERS SOLUTION 1,000 ML/1,000 ML INFUS.BAG IV SCH ×3 (10:45→17:48)
[2022-01-29] MEDS: PROPOFOL 1,000,000 MCG/100 ML VIAL IVPB SCH (17:23)
[2022-01-29] MEDS ORDERED: DEXTROSE 50%-WATER 25 GM/50 ML DISP.SYRIN ONE (18:18)
[2022-01-29] MEDS: DEXTROSE 5%-LACTATED RINGERS 1,000 ML IV SCH (18:38)
[2022-01-29] MEDS: CHLORHEXIDINE GLUCONATE 4% CLEANSER FOR DECOLONIZATION TP SCH (21:31)
[2022-01-30] MEDS: PIPERACILLIN/TAZOB 3.375 GM 3.375 GM in DEXTROSE 5%-WATER - 50 ML IVPB SCH ×3 (01:20→17:13)
[2022-01-30] MEDS: INSULIN (LEVEMIR) 100 UNITS/ML UNITS SQ SCH (06:23)
[2022-01-30] MEDS: INSULIN SLIDING SCALE (NOVOLOG) 1 VIAL SQ SCH ×4 (06:24→21:56)
[2022-01-30] MEDS: LEVOTHYROXINE SODIUM 100 MCG 5 ML VIAL IVPUSH SCH (06:25)
[2022-01-30 06:55] LABS: ARTERIAL BLD GAS O2 SATURATION 98.1 % (95-98); ARTERIAL BLOOD GAS BASE EXCESS 1.3 mmol/L (-2-2); ARTERIAL BLOOD GAS PO2 105.5 mmHg (80-100); ARTERIAL BLOOD GAS pH 7.469 (7.350-7.450)
[2022-01-30 06:59] LABS: ALLENS TEST POSITIVE; VENT MODE PSV
[2022-01-30 08:20] LABS: INR 0.97 (0.83-1.09); PROTHROMBIN TIME (PATIENT) 11.2 SEC (9.7-13.0)
[2022-01-30 08:30] LABS: BASO % 0.3 % (0-2.0); EOS % 0.1 % (0-4.5); HEMATOCRIT 31.7 % (35.4-49); HEMOGLOBIN 10.9 GM/dL (11.7-16.9); LYMPH % 19.5 % (8-40); MCHC 34.4 g/dl (32.0-35.9); MEAN CELL VOLUME 101.8 fl (80-96); MEAN PLT VOLUME 7.7 fl (7.5-11.1); MONO % 7.5 % (3.8-10.2); NEUT % 72.6 % (42.8-82.8); PLATELET COUNT 289 10^3/uL (134-434); RBC 3.12 M/mm3 (4.00-5.60); RDW 14.3 % (11.9-15.9); WHITE BLOOD COUNT 8.8 K/mm3 (4.0-10.0)
[2022-01-30 08:35] LABS: CALCIUM 7.9 mg/dL (8.5-10.1)
[2022-01-30 08:36] LABS: BLOOD UREA NITROGEN 11.3 mg/dL (7-18)
[2022-01-30 08:41] LABS: BILIRUBIN,TOTAL 0.6 mg/dL (0.2-1); TOT PROT 4.7 g/dl (6.4-8.2)
[2022-01-30] MEDS: ENOXAPARIN NA (PORCINE) 40 MG/0.4 ML DISP.SYRIN SQ SCH (09:23)
[2022-01-30] MEDS: PANTOPRAZOLE SODIUM 40 MG VIAL IVPUSH SCH (09:24)
[2022-01-30] MEDS: methylPREDNISolone NA SUCC 40 MG/1 ML VIAL IVPUSH SCH (09:24)
[2022-01-30] MEDS: MUPIROCIN 2% TOPICAL OINTMENT FOR DECOLONIZATION NS SCH ×2 (09:25→21:55)
[2022-01-30] MEDS: levETIRAcetam 500 MG/5 ML INJECTION VIAL IVPB SCH ×2 (09:25→21:56)
[2022-01-30] MEDS ORDERED: LEVOTHYROXINE SODIUM 100 MCG/ML 1 ML VIAL IVPUSH SCH (10:08)
[2022-01-30] MEDS: DEXTROSE 5%-LACTATED RINGERS 1,000 ML IV SCH (12:02)
[2022-01-30] MEDS: CHLORHEXIDINE GLUCONATE 4% CLEANSER FOR DECOLONIZATION TP SCH (21:55)
[2022-01-30] MEDS ORDERED: LACTATED RINGERS SOLUTION 1,000 ML/1,000 ML INFUS.BAG IV SCH (22:15)
[2022-01-30] MEDS: LORazepam 2 MG/ML SDV VIAL IVPUSH PRN (22:17)
[2022-01-31] MEDS: PIPERACILLIN/TAZOB 3.375 GM 3.375 GM in DEXTROSE 5%-WATER - 50 ML IVPB SCH ×3 (01:39→17:11)
[2022-01-31] MEDS: INSULIN SLIDING SCALE (NOVOLOG) 1 VIAL SQ SCH ×4 (06:27→21:31)
[2022-01-31] MEDS: INSULIN (LEVEMIR) 100 UNITS/ML UNITS SQ SCH (06:28)
[2022-01-31] MEDS: LEVOTHYROXINE SODIUM 100 MCG 5 ML VIAL IVPUSH SCH (06:51)
[2022-01-31 07:27] LABS: BASO % 0.1 % (0-2.0); EOS % 0.3 % (0-4.5); HEMATOCRIT 32.2 % (35.4-49); LYMPH % 18.1 % (8-40); MCH 34.9 pg (25.7-33.7); MCHC 34.2 g/dl (32.0-35.9); MEAN PLT VOLUME 7.4 fl (7.5-11.1); MONO % 9.5 % (3.8-10.2); PLATELET COUNT 301 10^3/uL (134-434); RBC 3.16 M/mm3 (4.00-5.60); RDW 14.2 % (11.9-15.9)
[2022-01-31 07:33] LABS: INR 1.01 (0.83-1.09); PROTHROMBIN TIME (PATIENT) 11.6 SEC (9.7-13.0)
[2022-01-31 07:36] LABS: ACTIVATED PTT 24.1 SECONDS (25.2-36.5)
[2022-01-31 07:51] LABS: CALCIUM 8.1 mg/dL (8.5-10.1)
[2022-01-31 07:52] LABS: ALBUMIN 2.2 g/dl (3.4-5.0); BLOOD UREA NITROGEN 11.1 mg/dL (7-18)
[2022-01-31 07:55] LABS: CREATININE 0.8 mg/dL (0.55-1.3)
[2022-01-31 07:56] LABS: BILIRUBIN,TOTAL 0.6 mg/dL (0.2-1); TOT PROT 4.8 g/dl (6.4-8.2)
[2022-01-31] MEDS: ENOXAPARIN NA (PORCINE) 40 MG/0.4 ML DISP.SYRIN SQ SCH (09:05)
[2022-01-31] MEDS: levETIRAcetam 500 MG/5 ML INJECTION VIAL IVPB SCH ×2 (09:05→21:30)
[2022-01-31] MEDS: methylPREDNISolone NA SUCC 40 MG/1 ML VIAL IVPUSH SCH (09:05)
[2022-01-31] MEDS: MUPIROCIN 2% TOPICAL OINTMENT FOR DECOLONIZATION NS SCH (09:05)
[2022-01-31] MEDS: PANTOPRAZOLE SODIUM 40 MG VIAL IVPUSH SCH (09:05)
[2022-01-31] MEDS ORDERED: LORazepam 2 MG/ML SDV VIAL IVPUSH ONE (10:56)
[2022-01-31 14:50] VITALS: BMI 20.7
[2022-01-31] MEDS ORDERED: DEXTROSE 5%-LACTATED RINGERS 1,000 ML IV SCH (17:30)
[2022-01-31] MEDS: CHLORHEXIDINE GLUCONATE 4% CLEANSER FOR DECOLONIZATION TP SCH (21:30)
[2022-01-31] MEDS ORDERED: VALPROATE SODIUM 500 MG/5 ML VIAL IVPB SCH (22:00)
[2022-01-31] MEDS: VALPROATE SODIUM INJECTION 750 MG in SODIUM CHLORIDE 100 ML IVPB SCH (22:07)
[2022-01-31] MEDS: LORazepam 2 MG/ML SDV VIAL IVPUSH PRN (22:25)
[2022-02-01] MEDS: PIPERACILLIN/TAZOB 3.375 GM 3.375 GM in DEXTROSE 5%-WATER - 50 ML IVPB SCH ×3 (02:20→18:35)
[2022-02-01] MEDS: INSULIN SLIDING SCALE (NOVOLOG) 1 VIAL SQ SCH ×5 (06:01→21:24)
[2022-02-01] MEDS: LEVOTHYROXINE SODIUM 100 MCG 5 ML VIAL IVPUSH SCH (06:01)
[2022-02-01 06:29] LABS: ARTERIAL BLOOD GAS BASE EXCESS 6.2 mmol/L (-2-2); ARTERIAL BLOOD GAS PO2 87.1 mmHg (80-100); ARTERIAL BLOOD GAS pH 7.466 (7.350-7.450)
[2022-02-01 07:07] LABS: VENT MODE PSV; VENT RATE 12
[2022-02-01 07:57] LABS: HEMATOCRIT 30.9 % (35.4-49); HEMOGLOBIN 10.8 GM/dL (11.7-16.9); MCH 35.3 pg (25.7-33.7); MCHC 35.1 g/dl (32.0-35.9); MEAN CELL VOLUME 100.8 fl (80-96); MEAN PLT VOLUME 7.2 fl (7.5-11.1); PLATELET COUNT 308 10^3/uL (134-434); RBC 3.06 M/mm3 (4.00-5.60); WHITE BLOOD COUNT 6.4 K/mm3 (4.0-10.0)
[2022-02-01 08:41] LABS: ALBUMIN 2.1 g/dl (3.4-5.0); BLOOD UREA NITROGEN 10.9 mg/dL (7-18); MAGNESIUM 2.1 mg/dL (1.8-2.4)
[2022-02-01 08:44] LABS: CREATININE 0.8 mg/dL (0.55-1.3); PHOSPHOROUS 1.9 mg/dL (2.5-4.9)
[2022-02-01 08:45] LABS: BILIRUBIN,TOTAL 0.8 mg/dL (0.2-1); TOT PROT 4.8 g/dl (6.4-8.2)
[2022-02-01 09:07] LABS: ANISOCYTOSIS 1+; MACROCYTOSIS 1+
[2022-02-01] MEDS: levETIRAcetam 500 MG/5 ML INJECTION VIAL IVPB SCH ×2 (09:19→21:25)
[2022-02-01] MEDS: PANTOPRAZOLE SODIUM 40 MG VIAL IVPUSH SCH (09:20)
[2022-02-01] MEDS: methylPREDNISolone NA SUCC 40 MG/1 ML VIAL IVPUSH SCH (09:20)
[2022-02-01] MEDS: ENOXAPARIN NA (PORCINE) 40 MG/0.4 ML DISP.SYRIN SQ SCH (09:20)
[2022-02-01] MEDS: VALPROATE SODIUM INJECTION 750 MG in SODIUM CHLORIDE 100 ML IVPB SCH ×2 (10:00→21:24)
[2022-02-01] MEDS ORDERED: SODIUM PHOSPHATE - 20 MM in SODIUM CHLORIDE 250 ML IVPB ONE (13:52)
[2022-02-01] MEDS: CHLORHEXIDINE GLUCONATE 4% CLEANSER FOR DECOLONIZATION TP SCH (21:24)
[2022-02-01] MEDS ORDERED: ACETAMINOPHEN 1000 MG/100 ML BAG IVPB STA (22:25)
[2022-02-02] MEDS: INSULIN SLIDING SCALE (NOVOLOG) 1 VIAL SQ SCH ×6 (01:04→21:26)
[2022-02-02] MEDS: PIPERACILLIN/TAZOB 3.375 GM 3.375 GM in DEXTROSE 5%-WATER - 50 ML IVPB SCH ×3 (01:07→17:14)
[2022-02-02] MEDS: LEVOTHYROXINE SODIUM 100 MCG 5 ML VIAL IVPUSH SCH (06:47)
[2022-02-02 06:55] LABS: HEMOGLOBIN 11.3 GM/dL (11.7-16.9); MCH 34.4 pg (25.7-33.7); MCHC 34.2 g/dl (32.0-35.9); MEAN CELL VOLUME 100.8 fl (80-96); MEAN PLT VOLUME 7.5 fl (7.5-11.1); PLATELET COUNT 366 10^3/uL (134-434); RBC 3.28 M/mm3 (4.00-5.60); RDW 14.1 % (11.9-15.9); WHITE BLOOD COUNT 7.4 K/mm3 (4.0-10.0)
[2022-02-02 07:18] LABS: ALBUMIN 2.2 g/dl (3.4-5.0); BLOOD UREA NITROGEN 13.6 mg/dL (7-18); CALCIUM 8.3 mg/dL (8.5-10.1); MAGNESIUM 2.2 mg/dL (1.8-2.4)
[2022-02-02 07:21] LABS: PHOSPHOROUS 2.5 mg/dL (2.5-4.9)
[2022-02-02 07:22] LABS: BILIRUBIN,TOTAL 0.4 mg/dL (0.2-1); TOT PROT 5.1 g/dl (6.4-8.2)
[2022-02-02] MEDS: ENOXAPARIN NA (PORCINE) 40 MG/0.4 ML DISP.SYRIN SQ SCH (09:30)
[2022-02-02] MEDS: levETIRAcetam 500 MG/5 ML INJECTION VIAL IVPB SCH ×2 (09:30→21:27)
[2022-02-02] MEDS: methylPREDNISolone NA SUCC 40 MG/1 ML VIAL IVPUSH SCH (09:30)
[2022-02-02] MEDS: PANTOPRAZOLE SODIUM 40 MG VIAL IVPUSH SCH (09:30)
[2022-02-02] MEDS: VALPROATE SODIUM INJECTION 750 MG in SODIUM CHLORIDE 100 ML IVPB SCH ×2 (09:31→21:47)
[2022-02-02 10:01] LABS: ANISOCYTOSIS 1+; MACROCYTOSIS 1+
[2022-02-02] MEDS ORDERED: ACETAMINOPHEN 1000 MG/100 ML BAG IVPB ONE (14:22)
[2022-02-02] MEDS ORDERED: ACETAMINOPHEN INJECTION 100 ML IVPB ONE (14:30)
[2022-02-02] MEDS: NAPH,MB-DB/K PH,MBDB POWDER PACKET NGT SCH ×2 (17:49→21:27)
[2022-02-02] MEDS: CHLORHEXIDINE GLUCONATE 4% CLEANSER FOR DECOLONIZATION TP SCH (21:27)
[2022-02-03] MEDS: NAPH,MB-DB/K PH,MBDB POWDER PACKET NGT SCH (00:49)
[2022-02-03] MEDS: PIPERACILLIN/TAZOB 3.375 GM 3.375 GM in DEXTROSE 5%-WATER - 50 ML IVPB SCH ×3 (01:01→18:18)
[2022-02-03] MEDS: INSULIN SLIDING SCALE (NOVOLOG) 1 VIAL SQ SCH ×6 (01:10→22:29)
[2022-02-03] MEDS: LEVOTHYROXINE SODIUM 100 MCG 5 ML VIAL IVPUSH SCH (06:40)
[2022-02-03 08:11] LABS: BASO % 0.1 % (0-2.0); HEMATOCRIT 32.3 % (35.4-49); HEMOGLOBIN 11.6 GM/dL (11.7-16.9); LYMPH % 17.4 % (8-40); MCH 36.1 pg (25.7-33.7); MCHC 35.7 g/dl (32.0-35.9); MEAN PLT VOLUME 7.2 fl (7.5-11.1); MONO % 7.4 % (3.8-10.2); NEUT % 75.1 % (42.8-82.8); PLATELET COUNT 380 10^3/uL (134-434); RDW 14.4 % (11.9-15.9); WHITE BLOOD COUNT 6.5 K/mm3 (4.0-10.0)
[2022-02-03 08:22] LABS: MAGNESIUM 2.3 mg/dL (1.8-2.4)
[2022-02-03 08:24] LABS: PHOSPHOROUS 3.2 mg/dL (2.5-4.9)
[2022-02-03 08:32] LABS: CALCIUM 8.4 mg/dL (8.5-10.1)
[2022-02-03 08:33] LABS: ALBUMIN 2.2 g/dl (3.4-5.0); BLOOD UREA NITROGEN 14.6 mg/dL (7-18)
[2022-02-03 08:37] LABS: BILIRUBIN,TOTAL 0.3 mg/dL (0.2-1); CREATININE 1.2 mg/dL (0.55-1.3); TOT PROT 5.1 g/dl (6.4-8.2)
[2022-02-03] MEDS: VALPROATE SODIUM INJECTION 750 MG in SODIUM CHLORIDE 100 ML IVPB SCH ×2 (09:51→23:34)
[2022-02-03] MEDS: PANTOPRAZOLE SODIUM 40 MG VIAL IVPUSH SCH (09:51)
[2022-02-03] MEDS: methylPREDNISolone NA SUCC 40 MG/1 ML VIAL IVPUSH SCH (09:51)
[2022-02-03] MEDS: ENOXAPARIN NA (PORCINE) 40 MG/0.4 ML DISP.SYRIN SQ SCH (09:51)
[2022-02-03] MEDS: levETIRAcetam 500 MG/5 ML INJECTION VIAL IVPB SCH ×2 (09:57→22:02)
[2022-02-03] MEDS: LACTATED RINGERS SOLUTION 1,000 ML/1,000 ML INFUS.BAG IV SCH (09:57)
[2022-02-03] MEDS ORDERED: ALBUTEROL SO4 2.5/IPRATROPIUM 0.5 INH SOL 3 ML VIAL.NEB. NEB PRN (10:38)
[2022-02-03 18:44] LABS: ALLENS TEST POSITIVE; ARTERIAL BLD GAS O2 SATURATION 93.1 % (95-98); ARTERIAL BLOOD GAS BASE EXCESS 4.8 mmol/L (-2-2); ARTERIAL BLOOD GAS PO2 61.3 mmHg (80-100); ARTERIAL BLOOD GAS pH 7.479 (7.350-7.450)
[2022-02-03] MEDS: CHLORHEXIDINE GLUCONATE 4% CLEANSER FOR DECOLONIZATION TP SCH (22:06)
[2022-02-04] MEDS: LACTATED RINGERS SOLUTION 1,000 ML/1,000 ML INFUS.BAG IV SCH ×2 (00:09→17:56)
[2022-02-04] MEDS: PIPERACILLIN/TAZOB 3.375 GM 3.375 GM in DEXTROSE 5%-WATER - 50 ML IVPB SCH ×3 (01:31→17:56)
[2022-02-04] MEDS: INSULIN SLIDING SCALE (NOVOLOG) 1 VIAL SQ SCH ×6 (01:42→22:21)
[2022-02-04] MEDS: LEVOTHYROXINE SODIUM 100 MCG 5 ML VIAL IVPUSH SCH (06:23)
[2022-02-04 07:42] LABS: BASO % 0.1 % (0-2.0); EOS % 0.2 % (0-4.5); HEMATOCRIT 35.1 % (35.4-49); HEMOGLOBIN 12.2 GM/dL (11.7-16.9); LYMPH % 15.4 % (8-40); MCH 34.9 pg (25.7-33.7); MCHC 34.8 g/dl (32.0-35.9); MEAN CELL VOLUME 100.3 fl (80-96); MONO % 5.6 % (3.8-10.2); NEUT % 78.7 % (42.8-82.8); PLATELET COUNT 386 10^3/uL (134-434); RDW 14.1 % (11.9-15.9); WHITE BLOOD COUNT 8.5 K/mm3 (4.0-10.0)
[2022-02-04 07:58] LABS: CALCIUM 8.6 mg/dL (8.5-10.1)
[2022-02-04 08:00] LABS: ALBUMIN 2.5 g/dl (3.4-5.0); MAGNESIUM 2.1 mg/dL (1.8-2.4)
[2022-02-04 08:02] LABS: CREATININE 0.7 mg/dL (0.55-1.3)
[2022-02-04 08:03] LABS: BILIRUBIN,TOTAL 0.6 mg/dL (0.2-1); TOT PROT 5.5 g/dl (6.4-8.2)
[2022-02-04] MEDS: LORazepam 2 MG/ML SDV VIAL IVPUSH PRN (08:57)
[2022-02-04 09:06] LABS: ARTERIAL BLD GAS O2 SATURATION 98.6 % (95-98); ARTERIAL BLOOD GAS BASE EXCESS 5.1 mmol/L (-2-2); ARTERIAL BLOOD GAS PO2 116.4 mmHg (80-100); ARTERIAL BLOOD GAS pH 7.514 (7.350-7.450)
[2022-02-04 09:07] LABS: ALLENS TEST POSITIVE
[2022-02-04] MEDS: PANTOPRAZOLE SODIUM 40 MG VIAL IVPUSH SCH (09:56)
[2022-02-04] MEDS: VALPROATE SODIUM INJECTION 750 MG in SODIUM CHLORIDE 100 ML IVPB SCH ×2 (09:56→23:18)
[2022-02-04] MEDS: levETIRAcetam 500 MG/5 ML INJECTION VIAL IVPB SCH ×2 (09:56→22:21)
[2022-02-04] MEDS: ENOXAPARIN NA (PORCINE) 40 MG/0.4 ML DISP.SYRIN SQ SCH (09:56)
[2022-02-04] MEDS: methylPREDNISolone NA SUCC 40 MG/1 ML VIAL IVPUSH SCH (09:56)
[2022-02-04] MEDS: CHLORHEXIDINE GLUCONATE 4% CLEANSER FOR DECOLONIZATION TP SCH (22:21)
[2022-02-05] MEDS: INSULIN SLIDING SCALE (NOVOLOG) 1 VIAL SQ SCH ×6 (02:40→21:29)
[2022-02-05] MEDS: PIPERACILLIN/TAZOB 3.375 GM 3.375 GM in DEXTROSE 5%-WATER - 50 ML IVPB SCH ×3 (02:40→17:32)
[2022-02-05] MEDS: LEVOTHYROXINE SODIUM 100 MCG 5 ML VIAL IVPUSH SCH (06:06)
[2022-02-05 08:24] LABS: ALBUMIN 2.4 g/dl (3.4-5.0); CALCIUM 8.9 mg/dL (8.5-10.1); MAGNESIUM 2.1 mg/dL (1.8-2.4)
[2022-02-05 08:27] LABS: CREATININE 0.8 mg/dL (0.55-1.3)
[2022-02-05 08:28] LABS: BILIRUBIN,TOTAL 0.6 mg/dL (0.2-1); PHOSPHOROUS 2.5 mg/dL (2.5-4.9); TOT PROT 5.6 g/dl (6.4-8.2)
[2022-02-05 08:33] LABS: BASO % 0.1 % (0-2.0); EOS % 0.4 % (0-4.5); HEMATOCRIT 47.1 % (35.4-49); HEMOGLOBIN 15.9 GM/dL (11.7-16.9); LYMPH % 7.5 % (8-40); MCH 34.1 pg (25.7-33.7); MCHC 33.7 g/dl (32.0-35.9); MEAN CELL VOLUME 101.3 fl (80-96); MEAN PLT VOLUME 7.5 fl (7.5-11.1); MONO % 4.2 % (3.8-10.2); NEUT % 87.8 % (42.8-82.8); PLATELET COUNT 323 10^3/uL (134-434); RBC 4.65 M/mm3 (4.00-5.60); RDW 14.6 % (11.9-15.9); WHITE BLOOD COUNT 11.3 K/mm3 (4.0-10.0)
[2022-02-05] MEDS: PANTOPRAZOLE SODIUM 40 MG VIAL IVPUSH SCH (09:26)
[2022-02-05] MEDS: methylPREDNISolone NA SUCC 40 MG/1 ML VIAL IVPUSH SCH (09:26)
[2022-02-05] MEDS: levETIRAcetam 500 MG/5 ML INJECTION VIAL IVPB SCH ×2 (11:15→22:11)
[2022-02-05] MEDS: ENOXAPARIN NA (PORCINE) 40 MG/0.4 ML DISP.SYRIN SQ SCH (11:15)
[2022-02-05] MEDS: VALPROATE SODIUM INJECTION 750 MG in SODIUM CHLORIDE 100 ML IVPB SCH ×2 (12:11→22:11)
[2022-02-05] MEDS ORDERED: LORazepam 2 MG/ML SDV VIAL IVPUSH STA (15:35)
[2022-02-05] MEDS: LACTATED RINGERS SOLUTION 1,000 ML/1,000 ML INFUS.BAG IV SCH (17:55)
[2022-02-05] MEDS: CHLORHEXIDINE GLUCONATE 4% CLEANSER FOR DECOLONIZATION TP SCH (22:11)
[2022-02-06] MEDS: INSULIN SLIDING SCALE (NOVOLOG) 1 VIAL SQ SCH ×6 (00:39→22:11)
[2022-02-06] MEDS: PIPERACILLIN/TAZOB 3.375 GM 3.375 GM in DEXTROSE 5%-WATER - 50 ML IVPB SCH (01:11)
[2022-02-06] MEDS: LEVOTHYROXINE SODIUM 100 MCG 5 ML VIAL IVPUSH SCH ×2 (06:08→06:18)
[2022-02-06 07:59] LABS: BASO % 0.2 % (0-2.0); HEMATOCRIT 36.3 % (35.4-49); HEMOGLOBIN 12.3 GM/dL (11.7-16.9); MCH 34.3 pg (25.7-33.7); MCHC 33.9 g/dl (32.0-35.9); MEAN CELL VOLUME 101.1 fl (80-96); MONO % 5.6 % (3.8-10.2); NEUT % 86.2 % (42.8-82.8); PLATELET COUNT 405 10^3/uL (134-434); RBC 3.59 M/mm3 (4.00-5.60); RDW 14.1 % (11.9-15.9); WHITE BLOOD COUNT 13.1 K/mm3 (4.0-10.0)
[2022-02-06 08:39] LABS: ALBUMIN 2.4 g/dl (3.4-5.0); BLOOD UREA NITROGEN 11.6 mg/dL (7-18); CALCIUM 9.5 mg/dL (8.5-10.1)
[2022-02-06 08:41] LABS: BILIRUBIN,TOTAL 0.7 mg/dL (0.2-1); CREATININE 0.8 mg/dL (0.55-1.3)
[2022-02-06 08:43] LABS: TOT PROT 5.5 g/dl (6.4-8.2)
[2022-02-06] MEDS: levETIRAcetam 500 MG/5 ML INJECTION VIAL IVPB SCH ×2 (10:22→21:55)
[2022-02-06] MEDS: ENOXAPARIN NA (PORCINE) 40 MG/0.4 ML DISP.SYRIN SQ SCH (10:23)
[2022-02-06] MEDS: methylPREDNISolone NA SUCC 40 MG/1 ML VIAL IVPUSH SCH (10:24)
[2022-02-06] MEDS: VALPROATE SODIUM INJECTION 750 MG in SODIUM CHLORIDE 100 ML IVPB SCH ×2 (10:25→22:36)
[2022-02-06] MEDS: PANTOPRAZOLE SODIUM 40 MG VIAL IVPUSH SCH (11:00)
[2022-02-06] MEDS: AMOX TR/POTASSIUM CLAVULANATE 250 MG/5 ML BOTTLE PO SCH ×2 (11:00→18:33)
[2022-02-06] MEDS ORDERED: ALBUTEROL SO4 2.5/IPRATROPIUM 0.5 INH SOL 3 ML VIAL.NEB. NEB PRN (19:45)
[2022-02-07] MEDS: INSULIN SLIDING SCALE (NOVOLOG) 1 VIAL SQ SCH ×6 (02:01→22:33)
[2022-02-07] MEDS: LEVOTHYROXINE SODIUM 100 MCG 5 ML VIAL IVPUSH SCH (07:00)
[2022-02-07 07:17] VITALS: RESP 20
[2022-02-07 10:09] LABS: BASO % 0.1 % (0-2.0); HEMATOCRIT 35.7 % (35.4-49); LYMPH % 4.2 % (8-40); MCH 34.2 pg (25.7-33.7); MCHC 33.6 g/dl (32.0-35.9); MEAN CELL VOLUME 101.9 fl (80-96); MEAN PLT VOLUME 7.8 fl (7.5-11.1); MONO % 6.7 % (3.8-10.2); PLATELET COUNT 450 10^3/uL (134-434); RDW 14.6 % (11.9-15.9); WHITE BLOOD COUNT 14.6 K/mm3 (4.0-10.0)
[2022-02-07] MEDS: PANTOPRAZOLE SODIUM 40 MG VIAL IVPUSH SCH (10:37)
[2022-02-07] MEDS: methylPREDNISolone NA SUCC 40 MG/1 ML VIAL IVPUSH SCH (10:37)
[2022-02-07] MEDS: ENOXAPARIN NA (PORCINE) 40 MG/0.4 ML DISP.SYRIN SQ SCH (10:37)
[2022-02-07] MEDS: AMOX TR/POTASSIUM CLAVULANATE 250 MG/5 ML BOTTLE PO SCH ×2 (10:38→17:53)
[2022-02-07] MEDS: levETIRAcetam 500 MG/5 ML INJECTION VIAL IVPB SCH ×2 (11:00→23:19)
[2022-02-07 11:31] LABS: CALCIUM 9.4 mg/dL (8.5-10.1)
[2022-02-07 11:32] LABS: ALBUMIN 2.5 g/dl (3.4-5.0)
[2022-02-07 11:35] LABS: CREATININE 0.8 mg/dL (0.55-1.3)
[2022-02-07 11:36] LABS: BILIRUBIN,TOTAL 0.5 mg/dL (0.2-1); BLOOD UREA NITROGEN 15.4 mg/dL (7-18); TOT PROT 5.8 g/dl (6.4-8.2)
[2022-02-07] MEDS: VALPROATE SODIUM INJECTION 750 MG in SODIUM CHLORIDE 100 ML IVPB SCH ×2 (11:56→23:18)
[2022-02-07] MEDS: ACETAMINOPHEN 1000 MG/100 ML BAG IVPB PRN ×2 (15:29→21:59)
[2022-02-08] MEDS: INSULIN SLIDING SCALE (NOVOLOG) 1 VIAL SQ SCH ×6 (03:02→23:33)
[2022-02-08] MEDS: ACETAMINOPHEN 1000 MG/100 ML BAG IVPB PRN ×3 (04:34→15:37)
[2022-02-08] MEDS: LEVOTHYROXINE SODIUM 100 MCG 5 ML VIAL IVPUSH SCH (06:48)
[2022-02-08 10:07] LABS: HEMATOCRIT 38.5 % (35.4-49); MCH 34.5 pg (25.7-33.7); MCHC 33.8 g/dl (32.0-35.9); MEAN CELL VOLUME 102.4 fl (80-96); MEAN PLT VOLUME 7.8 fl (7.5-11.1); PLATELET COUNT 405 10^3/uL (134-434); RBC 3.77 M/mm3 (4.00-5.60); RDW 14.8 % (11.9-15.9); WHITE BLOOD COUNT 5.4 K/mm3 (4.0-10.0)
[2022-02-08 11:00] LABS: ANISOCYTOSIS 1+; MACROCYTOSIS 1+
[2022-02-08 11:16] LABS: ALBUMIN 2.3 g/dl (3.4-5.0); BLOOD UREA NITROGEN 24.2 mg/dL (7-18); CALCIUM 9.3 mg/dL (8.5-10.1)
[2022-02-08 11:19] LABS: CREATININE 1.2 mg/dL (0.55-1.3); TOT PROT 5.8 g/dl (6.4-8.2)
[2022-02-08] MEDS ORDERED: INSULIN (NOVOLOG) ASPART 100 UNITS/ML 10ML VIAL ONE (11:21)
[2022-02-08 11:22] LABS: BILIRUBIN,TOTAL 0.6 mg/dL (0.2-1)
[2022-02-08] MEDS: ENOXAPARIN NA (PORCINE) 40 MG/0.4 ML DISP.SYRIN SQ SCH (11:34)
[2022-02-08] MEDS: VALPROATE SODIUM INJECTION 750 MG in SODIUM CHLORIDE 100 ML IVPB SCH ×2 (11:34→23:03)
[2022-02-08] MEDS: PANTOPRAZOLE SODIUM 40 MG VIAL IVPUSH SCH (11:36)
[2022-02-08] MEDS: AMOX TR/POTASSIUM CLAVULANATE 250 MG/5 ML BOTTLE PO SCH ×2 (11:50→17:42)
[2022-02-08] MEDS: methylPREDNISolone NA SUCC 40 MG/1 ML VIAL IVPUSH SCH (11:51)
[2022-02-08] MEDS: levETIRAcetam 500 MG/5 ML INJECTION VIAL IVPB SCH ×2 (13:12→23:02)
[2022-02-08] MEDS ORDERED: IBUPROFEN 800 MG/8 ML IJ IVPB ONE (15:13)
[2022-02-09] MEDS: INSULIN SLIDING SCALE (NOVOLOG) 1 VIAL SQ SCH ×5 (03:01→18:11)
[2022-02-09] MEDS: ACETAMINOPHEN 1000 MG/100 ML BAG IVPB PRN (04:55)
[2022-02-09] MEDS: LEVOTHYROXINE SODIUM 100 MCG 5 ML VIAL IVPUSH SCH (06:23)
[2022-02-09] MEDS: levETIRAcetam 500 MG/5 ML INJECTION VIAL IVPB SCH (12:14)
[2022-02-09] MEDS: VALPROATE SODIUM INJECTION 750 MG in SODIUM CHLORIDE 100 ML IVPB SCH (12:14)
[2022-02-09] MEDS: AMOX TR/POTASSIUM CLAVULANATE 250 MG/5 ML BOTTLE PO SCH ×2 (12:15→16:52)
[2022-02-09] MEDS: methylPREDNISolone NA SUCC 40 MG/1 ML VIAL IVPUSH SCH (12:15)
[2022-02-09] MEDS: ENOXAPARIN NA (PORCINE) 40 MG/0.4 ML DISP.SYRIN SQ SCH (12:15)
[2022-02-09] MEDS: PANTOPRAZOLE SODIUM 40 MG VIAL IVPUSH SCH (12:17)
[2022-02-09 18:19] VITALS: BP 95/67; PULSE 119; TEMP 98.1
[2022-02-09] MEDS ORDERED: ACETAMINOPHEN 1000 MG/100 ML BAG IVPB PRN (22:27)
== END 2022-02-10 05:55 | disposition expired | DRG 207 ==
LOC: JER 09:54 → JERBED 12:43 → JICU 14:34 → J8W 02-06 15:24
PROVIDERS: ADMIT Internal Medicine; ATTEND Internal Medicine
PROC: 06HM33Z Insertion of Infusion Device into Right Femoral Vein, Percutaneous Approach (ICD-10-PCS; principal; 2022-01-26)
PROC: 5A1955Z Respiratory Ventilation, Greater than 96 Consecutive Hours (ICD-10-PCS; 2022-01-26)
PROC: 0BH17EZ Insertion of Endotracheal Airway into Trachea, Via Natural or Artificial Opening (ICD-10-PCS; 2022-01-26)
PROC: B54BZZA Ultrasonography of Right Lower Extremity Veins, Guidance (ICD-10-PCS; 2022-01-26)
PROC: 05HC33Z Insertion of Infusion Device into Left Basilic Vein, Percutaneous Approach (ICD-10-PCS; 2022-01-26)
PROC: 4A00X4Z Measurement of Central Nervous Electrical Activity, External Approach (ICD-10-PCS; 2022-01-29)
DX: J96.01 Acute respiratory failure with hypoxia (principal); E03.5 Myxedema coma; E11.641 Type 2 diabetes mellitus with hypoglycemia with coma; J69.0 Pneumonitis due to inhalation of food and vomit; E87.20 Acidosis, unspecified; F23 Brief psychotic disorder; N17.9 Acute kidney failure, unspecified; R64 Cachexia; Z68.1 Body mass index [BMI] 19.9 or less, adult; F25.9 Schizoaffective disorder, unspecified; E03.9 Hypothyroidism, unspecified; I10 Essential (primary) hypertension; R41.82 Altered mental status, unspecified; D72.829 Elevated white blood cell count, unspecified; G40.901 Epilepsy, unspecified, not intractable, with status epilepticus; R94.5 Abnormal results of liver function studies; Z66 Do not resuscitate; Z79.4 Long term (current) use of insulin
CPT/HCPCS: 0241U-QW; 36415; 36600; 70450-TC; 71045-TC-FY; 72125-TC; 73060-TC-LT-FY; 73070-TC-LT-FY; 73090-TC-LT-FY; 80053; 80307; 81003; 82010; 82533; 82607; 82746; 82803; 82947; 82962; 83036; 83605; 83690; 83735; 83880; 84100; 84436; 84439; 84443; 84481; 84484; 85025; 85610; 85730; 86780; 86850; 86900; 86901; 87040; 87086; 93005; 93010; 93971; 94002; 95816; 99291; 99292